=== PATIENT | female | born 1970 | race Hispanic/Latino ===

== ENCOUNTER 2018-03-04 05:24 | Emergency (ER) | payer OTHER ==
[~2018-03-04] VITALS: Ht 160 cm; Wt 83.5 kg
[~2018-03-04 05:24] MED LIST: METFORMIN HCL500 MG PO; NORVASC5 MG PO; POTASSIUM CHLO20 ME1 PO
--- OUTSIDE RECORDS SUMMARY | 2018-03-04 05:28 | XMS REPORT | Clinical Summary ---
Author Author [facility] Organization [facility] Address Unknown Phone Unavailable Care Team Providers Care Management Coordinator Name Role Phone Kristal Paulino MD PCP Allergies Comments Active Allergy Reactions Severity Noted Date Codeine Nausea And 07/31/2015 Vomiting Corticosteroids 07/31/2015 (Glucocorticoids) Fludrocortisone Acetate 09/27/2015 Glucosamine 07/31/2015 Iodides Swelling 07/31/2015 Iodine And Iodide Swelling 07/05/2015 Containing Products Shellfish Containing 09/27/2015 Products Medications End Date Status Medication Sig Dispensed Refills Start Date Active spironolactone Take 200 mg 3 (ALDACTONE) 100 MG tablet by mouth once 7 daily. Active MICROGESTIN 1.5/, 21, Take 1 tablet 0 1.5-30 mg-mcg tablet by mouth once 7 daily. Active carvedilol (COREG) 12.5 TAKE 1 TABLET 180 tablet 3 MG tablet BY MOUTH 7 TWICE A DAY Active TRULICITY 1.5 mg/0.5 mL INJECT 0.5 ML 5 pen injector (1 SYRINGE) 7 SUBCUTANEOUSL Y WEEKLY 06/04/2018 Active oxybutynin XL (DITROPAN Take 1 tablet 30 tablet 11 XL) 5 MG 24 hr (5 mg total) 8 tabletIndications: by mouth Overactive bladder daily. Active hydrocortisone 2.5 % APPLY 0 ointment TOPICALLY 2 8 TIMES DAILY. A THIN LAYER TO AFFECTED SKIN 05/28/2017 Discontinued naproxen (NAPROSYN) 500 Take 1 tablet 60 tablet 0 MG tabletIndications: (500 mg 7 Sciatica of left side total) by mouth 2 (two) times a day with meals. 10/01/2017 triamcinolone (KENALOG) Apply 30 g 0 0.025 % topically 2 7 ointmentIndications: (two) times a Psoriasis day. 03/19/2017 clindamycin (CLEOCIN) 300 Take 1 42 capsule 0 MG capsuleIndications: capsule (300 7 Breast abscess mg total) by mouth 3 (three) times a day for 14 days. 04/28/2017 oseltamivir (TAMIFLU) 75 Take 1 10 capsule 0 MG capsuleIndications: capsule (75 8 Influenza mg total) by mouth 2 (two) times a day for 5 days. 04/27/2017 azithromycin (ZITHROMAX Take 2 6 tablet 0 Z-DAIANA) 250 MG tablets the 8 tabletIndications: first day, Influenza, Acute then 1 tablet non-recurrent daily for 4 pansinusitis days. 05/23/2017 benzonatate (TESSALON Take 1 30 capsule 0 PERLES) 100 MG capsule (100 8 capsuleIndications: Cough mg total) by mouth 3 (three) times a day as needed for cough for up to 30 days. 06/04/2017 nitrofurantoin, Take 1 14 capsule 0 macrocrystal-monohydrate, capsule (100 8 (MACROBID) 100 MG mg total) by capsuleIndications: UTI mouth 2 (two) (urinary tract times a day infection), uncomplicated for 7 days. 06/15/2017 sulfamethoxazole-trimetho Take 1 tablet 14 tablet 0 prim (BACTRIM DS) 800-160 by mouth 2 8 mg per tablet (two) times a day for 7 days. 06/26/2017 ciprofloxacin (CIPRO) 500 Take 1 tablet 1 tablet 0 MG tablet (500 mg 8 total) by mouth daily for 1 day. Active Problems Problem Noted Date Chronic UTI 06/17/2017 Elevated hemoglobin 05/12/2016 Vitamin D deficiency 05/09/2016 PCOS (polycystic ovarian syndrome) 01/27/2016 Overview: Dr. Rivera Hyperaldosteronism 07/05/2015 Overview: Overview: Managed by endocrine - dr. 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/2015 Overview: Overview: Component of hyperaldosteronism - on coreg Type 2 diabetes mellitus without complication 07/05/2015 Overview: Overview: trulicty per endocrine Resolved Problems Problem Noted Date Resolved Date Abscess of breast 03/11/2017 05/28/2017 Encounters Care Team Description Date Type Specialty Mari Lopez RN 01/05/2018 Telephone Family Medicine Kristal Paulino MD RLQ abdominal pain 08/19/2017 Lab Lab Kristal Paulino MD RLQ abdominal pain (Primary Dx) 08/19/2017 Office Visit Internal Medicine Eloisa Cardenas MD 08/03/2017 Telephone Urology Eloisa Cardenas MD 07/23/2017 Telephone Urology Eloisa Cardenas MD 07/02/2017 Telephone Urology Eloisa Cardenas MD 06/30/2017 Telephone Urology Eloisa Cardenas MD Gross hematuria (Primary Dx) 06/25/2017 Procedure visit Urology Kristal Paulino MD Anxiety about health (Primary Dx); Hypertension due to endocrine disorder; Type 2 diabetes mellitus without complication, without long-term current use of insulin; Hyperaldosteronism; Chronic UTI 06/16/2017 Office Visit Internal Medicine Eloisa Cardenas MD Gross hematuria 06/16/2017 Hospital Radiology Encounter Eloisa Cardenas MD Gross hematuria 06/16/2017 Hospital Radiology Encounter Eloisa Cardenas MD Canceled (Patient) 06/12/2017 Hospital Radiology Encounter Coco Sanchez MA 06/12/2017 Telephone Urology Eloisa Cardenas MD Gross hematuria 06/11/2017 Hospital Radiology Encounter Eloisa Cardenas MD Gross hematuria 06/11/2017 Hospital Radiology Encounter Eloisa Cardenas MD 06/09/2017 Telephone Urology Coco Sanchez MA 06/08/2017 Orders Only Urology Eloisa Cardenas MD CONNIE (stress urinary incontinence, female) (Primary Dx); Gross hematuria; Overactive bladder; Bilateral low back pain without sciatica, unspecified chronicity; Pelvic pain in female 06/04/2017 Office Visit Urology Kristal Paulino MD Gross hematuria (Primary Dx) 05/31/2017 Orders Only Internal Medicine Kristal Paulino MD 05/30/2017 Orders Only Internal Medicine Kristal Paulino MD UTI (urinary tract infection), uncomplicated (Primary Dx); Type 2 diabetes mellitus without complication, without long-term current use of insulin; PCOS (polycystic ovarian syndrome); Hypertension due to endocrine disorder; Hyperaldosteronism 05/28/2017 Office Visit Internal Medicine Kristal Paulino MD 05/21/2017 Telephone Family Medicine Kristal Paulino MD 05/20/2017 Telephone Family Medicine Kristal Paulino MD 05/13/2017 Telephone Family Medicine Kristal Paulino MD 04/28/2017 Telephone Family Medicine Kristal Paulino MD Body aches (Primary Dx); Influenza; Acute non-recurrent pansinusitis; Cough 04/23/2017 Office Visit Internal Medicine Rowan Austin LVN 04/23/2017 Telephone Internal Medicine Gaby Whitten NP Abscess of breast (Primary Dx) 03/11/2017 Office Visit General Surgery Julio Muñoz Jr., MD progress note (Phone Call) 03/09/2017 Documentation General Surgery Julio Muñoz Jr., MD Breast abscess (Primary Dx) 03/06/2017 Lab Lab Prisca Vazquez MA Breast abscess (Primary Dx) 03/06/2017 Orders Only General Surgery Julio Muñoz Jr., MD Breast abscess of female (Primary Dx) 03/05/2017 Office Visit General Surgery Kristal Paulino MD Breast abscess (Primary Dx); Abscess of breast, right 03/05/2017 Office Visit Internal Medicine after 03/03/2017 Family History Medical History Relation Name Comments Hyperlipidemia Father Hypertension Father Kidney cancer Father Stroke Mother Relation Name Status Comments Father Mother Social History Date Tobacco Use Types Packs/Day Years Used Never Smoker Smokeless Tobacco: Never Used Alcohol Use Drinks/Week oz/Week Comments Yes Sex Assigned at Date Recorded Not on file Industry Job Start Date Occupation Not on file Not on file Not on file Travel End Travel History Travel Start No recent travel history available. Last Filed Vital Signs Time Taken Vital Sign Reading 08/19/2017 10:17 AM CDT Blood Pressure 124/85 08/19/2017 10:17 AM CDT Pulse 88 08/19/2017 10:17 AM CDT Temperature 36.6 C (97.9 F) 08/19/2017 10:17 AM CDT Respiratory Rate 16 08/19/2017 10:17 AM CDT Oxygen Saturation 95% - Inhaled Oxygen - Concentration 08/19/2017 10:17 AM CDT Weight 80.7 kg (178 lb) 08/19/2017 10:17 AM CDT Height 152.4 cm (5') 08/19/2017 10:17 AM CDT Body Mass Index 34.76 Plan of Treatment Care Team Description Date Type Specialty Kristal Paulino MD [address] [facility] [address] [place], [place] [id number] 03/09/2018 Office Visit Internal Medicine Health Maintenance Due Date Last Done Comments DIABETIC RETINAL EYE EXAM 1970 DIABETIC FOOT EXAM 1980 URINE MICROALBUMIN 1980 HEPATITIS B VACCINES (1 1989 of 3 - Risk 3-dose series) CERVICAL CANCER SCREENING 1991 INFLUENZA VACCINE 10/28/2017 IPV VACCINES Aged Out No longer eligible based on patient's age to complete this topic MENINGOCOCCAL VACCINE Aged Out No longer eligible based on patient's age to complete this topic Procedures Comments Procedure Name Priority Date/Time Associated Diagnosis CT ABDOMEN PELVIS WO STAT 08/19/2017 RLQ abdominal pain CONTRAST 1:51 PM CDT MAGNESIUM LEVEL Routine 08/19/2017 RLQ abdominal pain 11:10 AM CDT CBC WITH PLATELET AND Routine 08/19/2017 RLQ abdominal pain DIFFERENTIAL 11:10 AM CDT COMPREHENSIVE METABOLIC Routine 08/19/2017 RLQ abdominal pain PANEL 11:10 AM CDT POC URINALYSIS DIPSTICK Routine 06/25/2017 Gross hematuria 1:58 PM CDT MRI ABDOMEN WO CONTRAST Routine 06/16/2017 Gross hematuria 9:55 AM CDT MRI PELVIS WO CONTRAST Routine 06/16/2017 Gross hematuria 9:15 AM CDT ESTIMATED GFR Routine 06/12/2017 1:56 PM CDT POC CREATININE Routine 06/12/2017 1:56 PM CDT URINALYSIS, AUTOMATED Routine 06/04/2017 Gross hematuria WITH MICROSCOPY 11:25 AM [employer] URINE CULTURE Routine 06/04/2017 Gross hematuria 11:25 AM [employer] [id number] Routine 06/04/2017 Gross hematuria 11:18 AM [employer] CONNIE (stress urinary incontinence, female) Overactive bladder POC URINALYSIS DIPSTICK Routine 06/04/2017 Gross hematuria 10:18 AM [employer] URINALYSIS, COMPLETE, Routine 05/30/2017 WITH REFLEX TO CULTURE 12:49 AM [employer] URINE CULTURE Routine 05/30/2017 12:49 AM [employer] POC URINALYSIS DIPSTICK Routine 05/28/2017 UTI (urinary tract 10:05 AM [employer] infection), uncomplicated POCT INFLUENZA A/B Routine 04/23/2017 Body aches 10:01 AM [employer] GRAM STAIN Routine 03/06/2017 11:47 AM [employer] ANAEROBIC CULTURE Routine 03/06/2017 Breast abscess 11:47 AM [employer] AEROBIC CULTURE Routine 03/06/2017 Breast abscess 11:47 AM [employer] after 03/03/2017 Results * CT Abdomen Pelvis Wo Contrast (08/19/2017 1:51 PM CDT) Narrative Performed At EXAMINATION:CT ABDOMEN PELVIS WO CONTRAST [facility] CLINICAL HISTORY:R10.31 Right lower quadrant pain, ABDOMINAL PAIN TECHNIQUE: Multiple axial images of the abdomen and pelvis were obtained without intravenous administration of iodinated contrast. Sagittal and coronal computerized reformatted images were also obtained. The lack of intravenous contrast reduces the sensitivity of detecting solid organ disease.. All CT images were acquired using low-dose technique with automated exposure control. COMPARISON: None. FINDINGS: Abdomen: 1.The appendix appears normal. 2.Diffuse fatty infiltration of liver. 3.Cholecystectomy. 4.Bilateral nephrolithiasis. Largest stone in the right kidney measures 3 mm to 4 mm. Largest stone in the left kidney measures 4 mm at the inferior pole level. There are cysts involving the kidneys bilaterally. In addition, there is cortical scarring bilaterally more so involving left kidney than the right. No hydronephrosis. 5.Large and small bowel loops are of normal caliber. The abdominal aorta is of normal caliber. There is no retroperitoneal lymphadenopathy. Pelvis: 1.The bladder appears normal. 2.A pelvic mass or fluid collection is not identified. 3.No pelvic lymphadenopathy. 4.The osseous structures are intact. IMPRESSION: 1.Hepatic steatosis. 2.Bilateral nephrolithiasis. An obstructing renal or ureteral stone is not identified. 3.The appendix appears normal. [facility]-[id number] Procedure Note Interface, Radiology Results Incoming - 08/19/2017 2:04 PM CDT EXAMINATION: CT ABDOMEN PELVIS WO CONTRAST CLINICAL HISTORY: R10.31 Right lower quadrant pain, ABDOMINAL PAIN TECHNIQUE: Multiple axial images of the abdomen and pelvis were obtained without intravenous administration of iodinated contrast. Sagittal and coronal computerized reformatted images were also obtained. The lack of intravenous contrast reduces the sensitivity of detecting solid organ disease.. All CT images were acquired using low-dose technique with automated exposure control. COMPARISON: None. FINDINGS: Abdomen: 1. The appendix appears normal. 2. Diffuse fatty infiltration of liver. 3. Cholecystectomy. 4. Bilateral nephrolithiasis. Largest stone in the right kidney measures 3 mm to 4 mm. Largest stone in the left kidney measures 4 mm at the inferior pole level. There are cysts involving the kidneys bilaterally. In addition, there is cortical scarring bilaterally more so involving left kidney than the right. No hydronephrosis. 5. Large and small bowel loops are of normal caliber. The abdominal aorta is of normal caliber. There is no retroperitoneal lymphadenopathy. Pelvis: 1. The bladder appears normal. 2. A pelvic mass or fluid collection is not identified. 3. No pelvic lymphadenopathy. 4. The osseous structures are intact. IMPRESSION: 1. Hepatic steatosis. 2. Bilateral nephrolithiasis. An obstructing renal or ureteral stone is not identified. 3. The appendix appears normal. [facility]-[id number] Performing Organization Address City/State/Zipcode Phone Number [facility] [address] [place] [address] * CBC with platelet and differential (08/19/2017 11:10 AM CDT) WBC 8.3 3.8 - 10.8 Thousand/uL [employer] [place] RBC 5.62 (H) 3.80 - 5.10 Million/uL [employer] [place] HGB 17.0 (H) 11.7 - 15.5 g/dL [employer] [place] HCT 50.9 (H) 35.0 - 45.0 % [employer] [place] MCV 90.6 80.0 - 100.0 fL [employer] [place] MCH 30.2 27.0 - 33.0 pg [employer] [place] MCHC 33.4 32.0 - 36.0 g/dL [employer] [place] RDW 12.8 11.0 - 15.0 % [employer] [place] Platelet count 313 140 - 400 Thousand/uL [facility] [employer] [place] MPV 10.4 7.5 - 12.5 fL [employer] [place] Neutrophils, absolute 5,843 1,500 - 7,800 cells/uL [employer] [place] Lymphocytes, absolute 1,760 850 - 3,900 cells/uL [employer] [place] Monocytes, absolute 573 200 - 950 cells/uL [employer] [place] Eosinophils, absolute 58 15 - 500 cells/uL [employer] [place] Basophils, absolute 66 0 - 200 cells/uL [employer] [place] Neutrophils 70.4 % [employer] [place] Lymphocytes 21.2 % [employer] [place] Monocytes 6.9 % [employer] [place] Eosinophils 0.7 % [employer] [place] Basophils + RC 0.8 % [employer] [place] Specimen Blood Resulting Agency Comment Performing Organization Information: Site ID: [id number] Name: [facility] Address: [address] [place] [phone] Director: Genoveva Velasquez Performing Organization Address [facility] Phone Number [facility] [employer] [address] [address] * Magnesium level (08/19/2017 11:10 AM CDT) Magnesium 1.9 1.5 - 2.5 mg/dL [facility] [employer] [place] Specimen Blood Resulting Agency Comment Performing Organization Information: Site ID: [id number] Name: [facility] Address: [address] [place] [phone] Director: Genoveva Velasquez Performing Organization Address City/[facility] Phone Number [facility] [address] [address] * Comprehensive metabolic panel (08/19/2017 11:10 AM CDT) Glucose 114 (H) 65 - 99 mg/dL [employer] Comment: [place] Fasting reference interval For someone without known diabetes, a glucose value between 100 and 125 mg/dL is consistent with prediabetes and should be confirmed with a follow-up test. BUN, whole blood 14 7 - 25 mg/dL [facility] Creatinine 0.97 0.50 - 1.10 mg/dL [facility] [employer] [place] EGFR Non-Afr. Citizen Of [place] 70 > OR=60 mL/min/1.73m2 Hydrocapsule [facility] EGFR 81 > OR=60 mL/min/1.73m2 [facility] BUN/creatinine ratio NOT APPLICABLE 6 - 22 (calc) [facility] Sodium 139 135 - 146 mmol/L [facility] Potassium 4.2 3.5 - 5.3 mmol/L [facility] Chloride 102 98 - 110 mmol/L [facility] CO2 30 20 - 31 mmol/L [facility] Calcium 9.4 8.6 - 10.2 mg/dL [facility] Protein 7.5 6.1 - 8.1 g/dL Hydrocaps[facility] Albumin, S 4.2 3.6 - 5.1 g/dL [facility] Globulin, total 3.3 1.9 - 3.7 g/dL (calc) [facility] Albumin/globulin ratio 1.3 1.0 - 2.5 (calc) [facility] Total bilirubin 0.7 0.2 - 1.2 mg/dL [facility] Alkaline phosphatase 53 33 - 115 U/L [facility] AST 25 10 - 35 U/L [facility] ALT 38 (H) 6 - 29 U/L [facility] [employer] [place] Specimen Blood Resulting Agency Comment Performing Organization Information: Site ID: [id number] Name: [employer] [facility] Lab Address: [address] [place] [phone] Director: Genoveva Velasquez Performing Organization Address City/State/Zipcode Phone Number [address] [address] * POC urinalysis dipstick (06/25/2017 1:58 PM CDT) Only the most recent of 3 results within the time period is included. Color urine, POC Yellow Clarity urine, POC Clear Glucose urine, POC Negative Negative Bilirubin urine, POC Negative Negative Ketones urine, POC Negative Negative Specific gravity urine, 1.025 1.005 - 1.030 POC Blood urine, POC Trace (A) Negative pH urine, POC 6.0 5.0, 5.5, 6.0, 6.5, 7.0, 7.5, 8.0, 8.5 Protein urine, POC Negative Negative Urobilinogen urine, POC <2.0 <2.0 Nitrite urine, POC Negative Negative Leukocyte esterase urine, Small (A) Negative POC Specimen Urine * MRI Abdomen Wo Contrast (06/16/2017 9:55 AM CDT) Narrative Performed At [facility] EXAMINATION:MRI ABDOMEN WO CONTRAST CLINICAL HISTORY:R31.0 Gross hematuria, hematuria TECHNIQUE: Multiplanar multisequence MR images of the abdomen were obtained without contrast. The lack of intravenous contrast reduces the sensitivity of detecting solid organ disease. COMPARISON:None available FINDINGS: ABDOMEN: 1. Liver: Severe fatty infiltration of the liver. No discrete liver lesion can be visualized within the limitations of a noncontrast examination. 2. Gallbladder: The gallbladder is absent. 3. Biliary Tree: No intrahepatic ductal dilatation. The extrahepatic common duct is within normal limits. 3. Spleen: The spleen is not enlarged. 4. Pancreas: The pancreas is unremarkable. 5. Adrenal Glands: The adrenal glands are unremarkable. 6. Kidneys: There is moderate scarring of the left kidney with numerous cysts in the kidneys bilaterally. The largest cyst in the left kidney in the anterior interpolar region on series 901, image 22 measures 24 x 21 mm. No definite solid mass is seen in the left kidney. The right kidney demonstrates multiple cysts, with the largest measuring up to 9 mm in the upper pole. The proximal ureters are unremarkable. 7. Abdominal Aorta: The abdominal aorta is nonaneurysmal. 8. Nodes: No enlarged retroperitoneal or mesenteric lymphadenopathy. 9. Ascites: No ascites or fluid collections. 10: Marrow: No suspicious marrow signal abnormalities. IMPRESSION: Numerous cystic lesions throughout the kidneys bilaterally with scarring of the left kidney. No visible solid mass within the limitations of a noncontrast examination. Noncontrast evaluation of the proximal ureters is unremarkable. The mid ureters are collapsed limiting evaluation. If the patient is allergic to gadolinium contrast, consider CT urogram. Additional findings as above. [facility]-[id number] Procedure Note Interface, Radiology Results - 06/16/2017 10:36 AM CDT EXAMINATION: MRI ABDOMEN WO CONTRAST CLINICAL HISTORY: R31.0 Gross hematuria, hematuria TECHNIQUE: Multiplanar multisequence MR images of the abdomen were obtained without contrast. The lack of intravenous contrast reduces the sensitivity of detecting solid organ disease. COMPARISON: None available FINDINGS: ABDOMEN: 1. Liver: Severe fatty infiltration of the liver. No discrete liver lesion can be visualized within the limitations of a noncontrast examination. 2. Gallbladder: The gallbladder is absent. 3. Biliary Tree: No intrahepatic ductal dilatation. The extrahepatic common duct is within normal limits. 3. Spleen: The spleen is not enlarged. 4. Pancreas: The pancreas is unremarkable. 5. Adrenal Glands: The adrenal glands are unremarkable. 6. Kidneys: There is moderate scarring of the left kidney with numerous cysts in the kidneys bilaterally. The largest cyst in the left kidney in the anterior interpolar region on series 901, image 22 measures 24 x 21 mm. No definite solid mass is seen in the left kidney. The right kidney demonstrates multiple cysts, with the largest measuring up to 9 mm in the upper pole. The proximal ureters are unremarkable. 7. Abdominal Aorta: The abdominal aorta is nonaneurysmal. 8. Nodes: No enlarged retroperitoneal or mesenteric lymphadenopathy. 9. Ascites: No ascites or fluid collections. 10: Marrow: No suspicious marrow signal abnormalities. IMPRESSION: Numerous cystic lesions throughout the kidneys bilaterally with scarring of the left kidney. No visible solid mass within the limitations of a noncontrast examination. Noncontrast evaluation of the proximal ureters is unremarkable. The mid ureters are collapsed limiting evaluation. If the patient is allergic to gadolinium contrast, consider CT urogram. Additional findings as above. [facility]-[id number] [facility] Organization Address City/State/Zipcode Phone Number [facility] [address] [place] [address] * MRI Pelvis Wo Contrast (06/16/2017 9:15 AM CDT) Narrative Performed At EXAMINATION:MRI PELVIS WO CONTRAST [facility] CLINICAL HISTORY:R31.0 Gross hematuria, hematurai TECHNIQUE: Multiplanar multisequence MR images of the pelvis were obtained without contrast. The lack of intravenous contrast reduces the sensitivity of the examination. COMPARISON:None available FINDINGS: 1.No focal abnormality is seen within the urinary bladder. 2.The ureters are not distended and no contrast was given. Therefore evaluation of the distal ureters is markedly limited. 3.Evaluation of the uterus demonstrates several nabothian cysts. The junctional zone measures up to 16 mm in thickness at the level of the uterine fundus as seen on series 601, image 9 consistent with a focal adenomyoma.. No discrete uterine mass is seen. The vagina is unremarkable. The urethra appears unremarkable. 4.The ovaries are not enlarged. There are circumscribed T1 and T2 hypointense masses in both ovaries. The mass in the right ovary measures up to 2.1 x 1.3 cm. The mass in the left ovary measures up to 2.3 x 1.9 cm. 5.There is no suspicious local regional adenopathy. The rectosigmoid colon is collapsed. No free fluid in the pelvis. 6.Diffuse red marrow throughout the imaged portion of the skeleton is likely secondary to gender and body habitus. IMPRESSION: Unremarkable appearance of the distended portion of the urinary bladder. The distal ureters are not visualized as they are collapsed and contrast was not given. Small masses in the ovaries bilaterally which are dark on all imaging sequences and most suggestive of fibromas. In the absence of prior imaging, 6 month follow-up to ensure stability is recommended. Focal adenomyoma of the uterine fundus as above. [facility]-[id number] Procedure Note [facility], Radiology Results Incoming - 06/16/2017 10:26 AM CDT EXAMINATION: MRI PELVIS WO CONTRAST CLINICAL HISTORY: R31.0 Gross hematuria, hematurai TECHNIQUE: Multiplanar multisequence MR images of the pelvis were obtained without contrast. The lack of intravenous contrast reduces the sensitivity of the examination. COMPARISON: None available FINDINGS: 1. No focal abnormality is seen within the urinary bladder. 2. The ureters are not distended and no contrast was given. Therefore evaluation of the distal ureters is markedly limited. 3. Evaluation of the uterus demonstrates several nabothian cysts. The junctional zone measures up to 16 mm in thickness at the level of the uterine fundus as seen on series 601, image 9 consistent with a focal adenomyoma.. No discrete uterine mass is seen. The vagina is unremarkable. The urethra appears unremarkable. 4. The ovaries are not enlarged. There are circumscribed T1 and T2 hypointense masses in both ovaries. The mass in the right ovary measures up to 2.1 x 1.3 cm. The mass in the left ovary measures up to 2.3 x 1.9 cm. 5. There is no suspicious local regional adenopathy. The rectosigmoid colon is collapsed. No free fluid in the pelvis. 6. Diffuse red marrow throughout the imaged portion of the skeleton is likely secondary to gender and body habitus. IMPRESSION: Unremarkable appearance of the distended portion of the urinary bladder. The distal ureters are not visualized as they are collapsed and contrast was not given. Small masses in the ovaries bilaterally which are dark on all imaging sequences and most suggestive of fibromas. In the absence of prior imaging, 6 month follow-up to ensure stability is recommended. Focal adenomyoma of the uterine fundus as above. [facility]-[id number] Performing Organization Address [facility]/Zipcode Phone Number [address] [address] * Estimated GFR (06/12/2017 1:56 PM CDT) GFR Non Af Amer 53 (A) mL/min/1.73 m2 [facility] DEPARTMENT OF PATHOLOGY AND GENOMIC MEDICINE GFR Af Amer 65 mL/min/1.73 m2 [facility] DEPARTMENT OF Comment: PATHOLOGY AND Chronic kidney disease: <60 [facility] mL/min/1.73m2 Kidney failure: <15 mL/min/1.73m2 The estimated GFR is calculated from the IDMS-traceable Modification of Diet in Renal Disease Equation. The accuracy of the calculation is poor when the creatinine is normal. Calculated values >90 mL/min/1.73m2 are not reported. This equation has not been validated in children (<18 years), women, the elderly (>70 years), or ethnic groups other than Caucasians and Americans. Specimen Blood Performing Organization Address [facility]ode Phone Number [facility] DEPARTMENT OF [address] [place], [place] [phone] PATHOLOGY AND [employer] MEDICINE * POC creatinine (06/12/2017 1:56 PM CDT) POC creatinine 1.1 (H)Comment: Testing 0.5 - 0.9 mg/dl [facility] DEPARTMENT OF performed on the ISTAT PATHOLOGY AND instrument by JULIET Choi. GENOMIC MEDICINE Specimen Blood Performing Organization Address [facility]/Zipcode Phone Number [facility] DEPARTMENT OF [address] [place] [phone] PATHOLOGY AND GENOMIC MEDICINE * Urinalysis, automated with microscopy (06/04/2017 11:25 AM RUST PROOFER) Color, UA YELLOW YELLOW [facility] [place] Appearance CLOUDY (A) CLEAR [employer] [place] Specific gravity, urine 1.015 1.001 - 1.035 [facility] [place] pH, urine 6.5 5.0 - 8.0 [facility] [place] Glucose, urine NEGATIVE NEGATIVE [facility] [place] Bilirubin, UA NEGATIVE NEGATIVE [facility] [place] Ketones, UA NEGATIVE NEGATIVE [facility] [place] Occult blood, urine 1+ (A) NEGATIVE [facility] [place] Protein, UA 1+ (A) NEGATIVE [facility] [place] Nitrite, UA NEGATIVE NEGATIVE [facility] [place] Leukocyte esterase, UA 2+ (A) NEGATIVE [facility] [place] WBC, UA > OR=60 (A) < OR=5 /HPF [facility] [place] RBC, UA 0-2 < OR=2 /HPF [facility] [place] Squamous epithelial 6-10 (A) < OR=5 /HPF [facility] [employer] cells, UA [place] Bacteria, UA MANY (A) NONE SEEN /HPF [employer] [place] Hyaline casts, UA 0-5 (A) NONE SEEN /LPF [employer] [place] Specimen Urine Resulting Agency Comment Performing Organization Information: Site ID: [id number] Name: [facility] Address: [address] [place] [phone] Director: Genoveva Velasquez MD Performing Organization Address City/State/[place]code [place] [address] * Urine culture (06/04/2017 11:25 AM RUST PROOFER) Only the most recent of 2 results within the time period is included. Urine culture SEE NOTE (A) Hydrocapsule [facility] Comment: [place] CULTURE, URINE, ROUTINE MICRO NUMBER:[id number] TEST STATUS: FINAL SPECIMEN SOURCE: URINE SPECIMEN QUALITY:ADEQUATE RESULT: Greater than 100,000 CFU/mL of Proteus mirabilis COMMENT: Additional organism(s) less than 10,000 CFU/mL isolated. These organisms, commonly found on external and internal genitalia, are considered colonizers. No further testing performed. P.mirabi lis -------- -------- INT JAE AMOX/CLAVULANATE S <=2 AMPICILLIN S <=2 AMP/SULBACTAM S <=2 CEFAZOLIN NR<=4 2 CEFEPIME S <=1 CEFTRIAXONE S <=1 CIPROFLOXACIN S <=0.25 GENTAMICIN S <=1 IMIPENEM R 4 LEVOFLOXACIN S <=0.12 NITROFURANTOIN R 128 PIP/TAZOBACTAM S <=4 TOBRAMYCIN S <=1 TRIMETHOPRIM/SULFA S <=20 S=SusceptibleI=Intermediat eR=Resistant*=Not Tested NR=Not ReportedNN=See Therapy Comments THERAPY COMMENTS Note 1: For infections other than uncomplicated UTI caused by E. coli, K. pneumoniae or P. mirabilis: Cefazolin is resistant if JAE > or=8 mcg/mL. (Distinguishing susceptible versus intermediate for isolates with JAE < or=4 mcg/mL requires additional testing.) Note 2: For uncomplicated UTI caused by E. coli, K. pneumoniae or P. mirabilis: Cefazolin is susceptible if JAE <32 mcg/mL and predicts susceptible to the oral agents cefaclor, cefdinir, cefpodoxime, cefprozil, cefuroxime, cephalexin and loracarbef. THERAPY COMMENTS This organism may show imipenem resistance by mechanisms other than a carbapenemase. Specimen Urine Resulting Agency Comment Performing Organization Information: Site ID: [id number] Name: [facility] Address: [address] [place] [phone] Director: Genoveva Velasquez MD Performing Organization Address [facility] Mex[facility]ode Phone Number [place] [phone] * POC BLADDER SCAN/PVR (06/04/2017 11:18 AM RUST PROOFER) Volume PVR 21ml Specimen Urine * URINALYSIS, COMPLETE, WITH REFLEX TO CULTURE (05/30/2017 12:49 AM RUST PROOFER) [facility] [employer] Comment: [place] * Test not performed. * * No suitable specimen received. * Narrative Performed At FASTING: UNKNOWN [facility] Resulting Agency Comment Performing Organization Information: Site ID: [id number] Name: [facility] Address: [address] [place] [phone] Director: Genoveva Velasquez MD Performing Organization Address City/State/Zipcode Phone Number [place] [address] [address] * POC Influenza A/B (04/23/2017 10:01 AM RUST PROOFER) Rapid Influenza A Ag NEG Rapid Influenza B Ag NEG Specimen Swab * Aerobic culture (03/06/2017 11:47 AM RUST PROOFER) Aerobic culture isolate Peptoniphilus harei [facility] DEPARTMENT OF Recovered in Broth only: PATHOLOGY AND (A) GENOMIC MEDICINE Comment: Specimen Information Specimen Source: Abscess Specimen Site: Breast Aerobic culture isolate Diphtheroids [facility] DEPARTMENT OF Few PATHOLOGY AND (A) GENOMIC MEDICINE Specimen Abscess - Breast Performing Organization Address [facility]ode Phone Number [facility] DEPARTMENT OF [address] [place] [phone] PATHOLOGY AND GENOMIC MEDICINE * Gram stain (03/06/2017 11:47 AM RUST PROOFER) Gram stain isolate No WBC's [facility] DEPARTMENT OF Occasional Gram negative rods PATHOLOGY AND Moderate Gram positive cocci GENOMIC MEDICINE in clusters Comment: Specimen Information Specimen Source: Abscess Specimen Site: Breast Specimen Abscess - Breast Performing Organization Address [facility] Phone Number [facility] DEPARTMENT OF [address] [place] [phone] PATHOLOGY AND GENOMIC MEDICINE * Anaerobic culture (03/06/2017 11:47 AM RUST PROOFER) Anaerobic culture isolate Anaerobic gram negative harrison [facility] DEPARTMENT OF Organism failed to thrive for PATHOLOGY AND identification. GENOMIC MEDICINE (A) Comment: Specimen Information Specimen Source: Abscess Specimen Site: Breast Specimen Abscess - Breast Performing Organization Address City/[facility]ode Phone Number [facility] DEPARTMENT OF [address] [place] [phone] PATHOLOGY AND GENOMIC MEDICINE after 03/03/2017 Insurance Payer Benefit Subscriber ID Type Phone Address Plan / Group CIGNA CIGNA OPEN xxxxxxxxxxx O ACCESS/NET WORK Advance Directives Patient has advance care planning documents on file. For more information, [place] [place] contact: Ja Granado [address] [place] [phone]
--- OUTSIDE RECORDS SUMMARY | 2018-03-04 05:28 | XMS REPORT | Clinical Summary ---
Author Author [facility] Address Unknown Phone Unavailable Care Team Providers Care Plastic Press Operator Name Role Phone Willy Rodriguez MD PCP Allergies Comments Active Allergy Reactions Severity Noted Date Codeine Nausea Only 07/05/2015 Fludrocortisone Acetate 09/27/2015 Iodine And Iodide Swelling 07/05/2015 Containing Products Shellfish Containing 09/27/2015 Products Steroids 07/05/2015 Medications End Date Status Medication Sig Dispensed Refills Start Date Active carvedilol (COREG) 12.5 TAKE 1 TABLET 60 tablet 0 MG tablet BY MOUTH 6 TWICE A DAY Active spironolactone Take 1 tablet 0 (ALDACTONE) 100 MG tablet by mouth 2 (two) times daily. Active blood sugar diagnostic 1 strip by 200 strip 0 StrpIndications: Diabetes Miscellaneous 6 mellitus due to route 2 (two) underlying condition with times daily. complications (HCC) Active lancets (FREESTYLE) 28 Use as 200 each 0 gauge MiscIndications: directed. 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 Active ergocalciferol (VITAMIN Take 1 8 capsule 0 D) 50,000 unit capsule 7 capsuleIndications: (50,000 Units Vitamin D deficiency total) by mouth once a week For 8weeks. 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 Yeager - on spironolactone Type 2 diabetes mellitus without complication 07/05/2015 Overview: trulicty per endocrine Hypertension due to endocrine disorder 07/05/2015 Overview: Component of hyperaldosteronism - on coreg Family History Medical History Relation Name Comments Cancer Father kidney cancer Hyperlipidemia Father Hypertension Father Stroke Mother early 40's Relation Name Status Comments Father Alive Mother Alive Social History Date Tobacco Use Types Packs/Day Years Used Never Smoker Smokeless Tobacco: Never Used Tobacco Cessation: Counseling Given: No Alcohol Use Drinks/Week oz/Week Comments Yes 1 Standard 0.5 socially drinks or equivalent Sex Assigned at Date Recorded Not on file Industry Job Start Date Occupation Not on file Not on file Not on file Travel End Travel History Travel Start No recent travel history available. Last Filed Vital Signs Not on file Plan of Treatment Health Maintenance Due Date Last Done Comments INFLUENZA VACCINE 12/28/2017 Results Not on fileafter 03/03/2017 Insurance Payer Benefit Subscriber ID Type Phone Address Plan / Group CIGNA - MGD CARE CIGNA xxxxxxxxxxx HMO/POS HMO/POS/OP EN ACCESS
[2018-03-04] MEDS ORDERED: KETOROLAC TROMETHAMINE 60 MG/2 ML VIAL ONE (05:42)
[2018-03-04] MEDS ORDERED: ORPHENADRINE CITRATE 30 MG/ML VIAL ONE (05:42)
[2018-03-04] MEDS ORDERED: ORPHENADRINE CITRATE 30 MG/ML VIAL IM ONE (05:45)
[2018-03-04] MEDS ORDERED: KETOROLAC TROMETHAMINE 60 MG/2 ML VIAL IM ONE (05:45)
--- NOTE | 2018-03-04 06:44 | Diagnostic Imaging Report ---
EXAMINATION: Head CT HISTORY: Right upper extremity numbness. COMPARISON: None. TECHNIQUE: Multidetector axial images were obtained without contrast from the foramen magnum to the vertex . The images were reconstructed using brain and bone algorithms. Thin section brain images were reformatted into coronal and sagittal planes. Image quality: Motion/streaking artifact limits the evaluation of the skull base and posterior cranial fossa. Dose modulation, iterative reconstruction, and/or weight based adjustment of the mA/kV was utilized to reduce the radiation dose to as low as reasonably achievable. FINDINGS: Parenchyma: 1. No abnormal densities. 2. No mass or hemorrhage. No CT evidence of acute territorial vascular insult. Extra-axial spaces:No abnormal density. No extra-axial fluid collections Brain volume: Normal for age. Ventricles: No hydrocephalus or displacement. Arteries: No density suggestive of thrombus. Dural sinuses: No abnormal density. Extra-axial spaces: No abnormal density. Foramen magnum: No mass, Chiari malformation, or basilar invagination. Sella: No obvious mass. Paranasal/mastoid sinuses: Imaged portions unremarkable. Skull/Scalp: No lytic or blastic lesions. No fractures. IMPRESSION: Normal head CT, particularly no intracranial hemorrhage or cortical infarct.. Signed by: Dr. Leah Gonzalez M.D. on 03/04/2018 6:41 AM
--- NOTE | 2018-03-04 06:48 | Diagnostic Imaging Report ---
EXAMINATION: CT of the cervical spine HISTORY: Right upper extremity numbness COMPARISON: None available TECHNIQUE: Multidetector helical axial images were obtained without contrast from the foramen magnum to T1. The images were reconstructed using bone and soft tissue algorithms and were viewed in axial, sagittal and coronal planes. Dose modulation, iterative reconstruction, and/or weight based adjustment of the mA/kV was utilized to reduce the radiation dose to as low as reasonably achievable. FINDINGS: Alignment: Mild straightening of the cervical lordosis which may be related to muscle spasm or positional. Soft tissues: Approximately 2 cm hypoattenuating nodule in the left lobe of the thyroid gland. Vertebrae: Normal height and density. No acute fracture, infection or neoplasm Degenerative changes: No significant degenerative changes, no spinal canal or foraminal stenosis. IMPRESSION: No significant degenerative changes, no spinal canal or foraminal stenoses. Signed by: Dr. Leah Gonzalez M.D. on 03/04/2018 6:45 AM
== END 2018-03-04 06:59 | disposition home or self-care (01) ==
LOC: ER 05:24
DX: R53.1 Weakness (principal); R20.0 Anesthesia of skin; M54.12 Radiculopathy, cervical region; I10 Essential (primary) hypertension; E11.9 Type 2 diabetes mellitus without complications
CPT/HCPCS: 70450; 72125; 96372; 99283; J1885; J2360

== ENCOUNTER 2018-03-10 19:57 | Inpatient (IN) | payer OTHER ==
[~2018-03-10] VITALS: Ht 160 cm; Wt 87.5 kg
--- OUTSIDE RECORDS SUMMARY | 2018-03-10 20:00 | XMS REPORT ---
Author [facility] Address Unknown Phone Unavailable Care Team Providers Care University Administrator Name Role Phone Kaleb IGLESIAS Unavailable Unavailable Problems This patient has no known problems. Allergies, Adverse Reactions, Alerts This patient has no known allergies or adverse reactions. Medications This patient has no known medications. Results Test Description Test Time Test Comments Text Results Atomic Results Result Comments CT CERVICAL SPINE WO 2018-03-04 06:41:00 [place] [address] Patient Name: TL BUSTOS MR #: [id number] : 1970 Age/Sex: 47/F Req #: [id number] [facility] Physician: Ordered by: BRITTON IGLESIAS MD Report #: [id number] Location: ER Room/Bed: Procedure: [id number] CT/CT CERVICAL SPINE WO Exam Date: 03/04/18 Exam Time: 619 REPORT STATUS: Signed EXAMINATION: CT of the cervical spine HISTORY: Right upper extremity numbness COMPARISON: None available TECHNIQUE: Multidetector helical axial images were obtained without contrast from the foramen magnum to T1. The images were reconstructed using bone and soft tissue algorithms and were viewed in axial, sagittal and coronal planes. Dose modulation, iterative reconstruction, and/or weight based adjustment of the mA/kV was utilized to reduce the radiation dose to as low as reasonably achievable. FINDINGS: Alignment: Mild straightening of the cervical lordosis which may be related to muscle spasm or positional. Soft tissues: Approximately 2 cm hypoattenuating nodule in the left lobe of the thyroid gland. Vertebrae: Normal height and density. No acute fracture, infection or neoplasm Degenerative changes: No significant degenerative changes, no spinal canal or foraminal stenosis. IMPRESSION: No significant degenerative changes, no spinal canal or foraminal stenoses. Signed by: Dr. Manuel Sheth M.D. on 03/04/2018 6:45 AM Dictated By: MANUEL SHETH MD 4 Transcribed By: DEB on 03/04/18644 COPY TO: BRITTON IGLESIAS MD CT BRAIN WO 2018-03-04 06:38:00 [place] [address] Patient Name: TL BUSTOS MR #: [id number] : 1970 Age/Sex: 47/F Req #: [id number] Adm Physician: Ordered by: BRITTON IGLESIAS MD Report #: [id number] Location: ER Room/Bed: Procedure: [id number] CT/CT BRAIN WO Exam Date: 03/04/18 Exam Time: 619 REPORT STATUS: Signed EXAMINATION: Head CT HISTORY: Right upper extremity numbness. COMPARISON: None. TECHNIQUE: Multidetector axial images were obtained without contrast from the foramen magnum to the vertex . The images were reconstructed using brain and bone algorithms. Thin section brain images were reformatted into coronal and sagittal planes. Image quality: Motion/streaking artifact limits the evaluation of the skull base and posterior cranial fossa. Dose modulation, iterative reconstruction, and/or weight based adjustment of the mA/kV was utilized to reduce the radiation dose to as low as reasonably achievable. FINDINGS: Parenchyma: 1. No abnormal densities. 2. No mass or hemorrhage. No CT evidence of acute territorial vascular insult. Extra-axial spaces:No abnormal density. No extra-axial fluid collections Brain volume: Normal for age. Ventricles: No hydrocephalus or displacement. Arteries: No density suggestive of thrombus. Dural sinuses: No abnormal density. Extra-axial spaces: No abnormal density. Foramen magnum: No mass, Chiari malformation, or basilar invagination. Sella: No obvious mass. Paranasal/mastoid sinuses: Imaged portions unremarkable. Skull/Scalp: No lytic or blastic lesions. No fractures. IMPRESSION: Normal head CT, particularly no intracranial hemorrhage or cortical infarct.. Signed by: Dr. Manuel Sheth M.D. on 03/04/2018 6:41 AM Dictated By: MANUEL SHETH MD 0 Transcribed By: DEB on 03/04/18640 COPY TO: BRITTON IGLESIAS MD
--- OUTSIDE RECORDS SUMMARY | 2018-03-10 20:00 | XMS REPORT | Clinical Summary ---
Author Author [facility] Organization [facility] Address Unknown Phone Unavailable Care Team Providers Care Wood Molder Name Role Phone Kristal Paulino MD PCP [...] DAILY. A THIN LAYER TO AFFECTED SKIN 05/08/2018 Active meloxicam (MOBIC) 7.5 mg Take 1 tablet 60 tablet 0 tabletIndications: (7.5 mg 8 Cervical myelopathy with total) by cervical radiculopathy mouth daily for 60 days. 03/09/2019 Active gabapentin (NEURONTIN) Take 1 60 capsule 0 300 mg capsule (300 8 capsuleIndications: mg total) by Cervical myelopathy with mouth 2 (two) cervical radiculopathy times a day. 05/28/2017 Discontinued naproxen (NAPROSYN) 500 Take 1 [...] 500 Take 1 tablet 1 tablet 0 06/25/201 MG tablet (500 mg 8 total) by [...] Encounters Care Team Description Date Type Specialty Kristal Paulino MD Cervical myelopathy with cervical radiculopathy (Primary Dx) 03/09/2018 Office Visit Internal Medicine Mari Lopez RN 01/05/2018 Telephone Family Medicine [...] note (Phone Call) 03/09/2017 Documentation General Surgery after 03/09/2017 Family History Medical History Relation Name Comments [...] Vital Signs Time Taken Vital Sign Reading 03/09/2018 8:51 AM [facility] Blood Pressure 129/81 03/09/2018 8:51 AM [facility] Pulse 99 08/19/2017 10:17 AM CDT Temperature 36.6 C (97.9 F) 03/09/2018 8:51 AM [facility] Respiratory Rate 16 03/09/2018 8:51 AM [facility] Oxygen Saturation 95% - Inhaled Oxygen - Concentration 03/09/2018 8:51 AM [facility] Weight 87.5 kg (193 lb) 03/09/2018 8:51 AM [facility] Height 152.4 cm (5') 03/09/2018 8:51 AM [facility] Body Mass Index 37.69 Plan of Treatment Care Team Description Date Type Specialty Kristal Paulino MD [address] [facility] [address] [place] [address] 03/16/2018 Appointment Radiology Kristal Paulino MD [address] [facility] [address] [place] [address] Nazario Gill, IMAN 04/01/2018 Appointment Physical Therapy Kristal Paulino MD [address] [facility] [address] [place], [place] [id number] Gregoria Franco MD [address] [facility] [address] [place] [address] 04/15/2018 Office Visit Neurology Health Maintenance Due Date Last Done Comments [...] 06/04/2017 Gross hematuria WITH MICROSCOPY 11:25 AM [facility] URINE CULTURE Routine 06/04/2017 Gross hematuria 11:25 AM [facility] [id number] Routine 06/04/2017 Gross hematuria 11:18 AM [facility] CONNIE (stress urinary incontinence, female) Overactive bladder POC URINALYSIS DIPSTICK Routine 06/04/2017 Gross hematuria 10:18 AM [facility] URINALYSIS, COMPLETE, Routine 05/30/2017 WITH REFLEX TO CULTURE 12:49 AM [facility] URINE CULTURE Routine 05/30/2017 12:49 AM [facility] POC URINALYSIS DIPSTICK Routine 05/28/2017 UTI (urinary tract 10:05 AM [facility] infection), uncomplicated POCT INFLUENZA A/B Routine 04/23/2017 Body aches 10:01 AM [facility] after 03/09/2017 Results * CT Abdomen Pelvis Wo Contrast [...] is not identified. 3.The appendix appears normal. [facility]-[id number] Procedure Note [facility], Radiology Results Incoming - 08/19/2017 2:04 PM [...] not identified. 3. The appendix appears normal. [id number] Performing Organization Address City/State/Zipcode Phone Number [facility] [address] [place] [address] * CBC with platelet and differential (08/19/2017 11:10 AM CDT) WBC 8.3 3.8 - 10.8 Thousand/uL [facility] [employer] [place] RBC 5.62 (H) 3.80 - 5.10 Million/uL [employer] [place] HGB 17.0 (H) 11.7 - 15.5 g/dL [facility] HCT 50.9 (H) 35.0 - 45.0 % [employer] [place] MCV 90.6 80.0 - 100.0 fL [facility] MCH 30.2 27.0 - 33.0 pg [facility] MCHC 33.4 32.0 - 36.0 g/dL [employer] [place] RDW 12.8 11.0 - 15.0 % [employer] [place] Platelet count 313 140 - 400 Thousand/uL [facility] MPV 10.4 7.5 - 12.5 fL [facility] [employer] [place] Neutrophils, absolute 5,843 1,500 - 7,800 cells/uL [employer] [place] Lymphocytes, absolute 1,760 850 - 3,900 cells/uL [employer] [place] Monocytes, absolute 573 200 - 950 cells/uL [facility] Eosinophils, absolute 58 15 - 500 cells/uL [employer] [place] Basophils, absolute 66 0 - 200 cells/uL [employer] [place] Neutrophils 70.4 % [facility] Lymphocytes 21.2 % [employer] [place] Monocytes 6.9 % [facility] Eosinophils 0.7 % [facility] Basophils + RC 0.8 % [employer] [place] Specimen Blood Resulting Agency Comment Performing Organization Information: Site ID: [id number] Name: [facility] Address: [address] [place] [address] Director: Genoveva Velasquez Performing Organization Address City/State/Zipcode Phone Number [place] [phone] [place] [address] * Magnesium level (08/19/2017 11:10 AM CDT) Magnesium 1.9 1.5 - 2.5 mg/dL [facility] [employer] [place] Specimen Blood Resulting Agency Comment Performing Organization Information: Site ID: [id number] Name: [facility] Address: [address] [place] [phone] Director: Genoveva Velasquez Performing Organization Address [facility] [place]/[facility] Cent[facility] Phone Number [facility] [employer] [address] [address] * Comprehensive metabolic panel (08/19/2017 11:10 AM CDT) Glucose 114 (H) 65 - 99 mg/dL [employer] Comment: [place] Fasting reference interval For someone without known diabetes, a glucose value between 100 and 125 mg/dL is consistent with prediabetes and should be confirmed with a follow-up test. BUN, whole blood 14 7 - 25 mg/dL [employer] [place] Creatinine 0.97 0.50 - 1.10 mg/dL [employer] [place] EGFR Non-Afr. [place] 70 > OR=60 mL/min/1.73m2 [employer] [place] EGFR 81 > OR=60 mL/min/1.73m2 [employer] [place] BUN/creatinine ratio NOT APPLICABLE 6 - 22 (calc) [employer] [place] Sodium 139 135 - 146 mmol/L [employer] [place] Potassium 4.2 3.5 - 5.3 mmol/L [employer] [place] Chloride 102 98 - 110 mmol/L [employer] [place] CO2 30 20 - 31 mmol/L [employer] [place] Calcium 9.4 8.6 - 10.2 mg/dL [employer] [place] Protein 7.5 6.1 - 8.1 g/dL [employer] [place] Albumin, S 4.2 3.6 - 5.1 g/dL [employer] [place] Globulin, total 3.3 1.9 - 3.7 g/dL (calc) [employer] [place] Albumin/globulin ratio 1.3 1.0 - 2.5 (calc) [employer] [place] Total bilirubin 0.7 0.2 - 1.2 mg/dL [employer] [place] Alkaline phosphatase 53 33 - 115 U/L [employer] [place] AST 25 10 - 35 U/L [employer] [place] ALT 38 (H) 6 - 29 U/L [employer] [place] Specimen Blood Resulting Agency Comment Performing Organization Information: Site ID: [id number] Name: [facility] Address: [address] [place] [phone] Director: Genoveva Velasquez Performing Organization Address City/[facility]/Zipcode Phone Number [facility] [address] [address] * POC urinalysis dipstick (06/25/2017 1:58 PM [...] (06/16/2017 9:55 AM CDT) Narrative Performed At [facility] RADIANT EXAMINATION:MRI ABDOMEN WO CONTRAST CLINICAL HISTORY:R31.0 [...] consider CT urogram. Additional findings as above. [facility]-[id number] Procedure Note Interface, Radiology Results - 06/16/2017 [...] consider CT urogram. Additional findings as above. 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 [facility]-[id number] Performing Organization Address City/[facility]/Zipcode Phone Number [facility] [address] [place] [address] * Estimated GFR (06/12/2017 1:56 PM CDT) GFR Non Af Amer 53 (A) mL/min/1.[address] [facility] DEPARTMENT OF PATHOLOGY AND GENOMIC MEDICINE GFR Af Amer 65 mL/min/1.[address] [facility] DEPARTMENT OF Comment: PATHOLOGY AND Chronic kidney disease: <60 GENOMIC MEDICINE mL/min/1.73m2 Kidney failure: <15 mL/min/1.73m2 The [...] and Americans. Specimen Blood Performing Organization Address City/[facility]/Zipcode Phone Number [address] [address] PATHOLOGY AND GENOMIC MEDICINE * POC creatinine (06/12/2017 1:56 PM CDT) POC creatinine 1.1 (H)Comment: Testing 0.5 - 0.9 mg/dl [facility] DEPARTMENT OF performed on the ISTAT PATHOLOGY AND instrument by RN [id number]. GENOMIC MEDICINE Specimen Blood Performing Organization Address City/State/Zipcode Phone Number [facility] DEPARTMENT OF [address] [place] [address] PATHOLOGY AND GENOMIC MEDICINE * Urinalysis, automated with microscopy (06/04/2017 11:25 AM [facility]) Color, UA YELLOW YELLOW [facility] [place] Appearance CLOUDY (A) CLEAR [facility] [place] Specific gravity, urine 1.015 1.001 - 1.035 [facility] [place] pH, urine 6.5 5.0 - 8.0 [facility] [place] Glucose, urine NEGATIVE NEGATIVE [facility] [place] Bilirubin, UA NEGATIVE NEGATIVE [facility] [place] Ketones, UA NEGATIVE NEGATIVE [facility] [place] Occult blood, urine 1+ (A) NEGATIVE [facility] [place] Protein, UA 1+ (A) NEGATIVE [facility] [place] Nitrite, UA NEGATIVE NEGATIVE [facility] [place] Leukocyte esterase, UA 2+ (A) NEGATIVE [facility] [place] WBC, UA > OR=60 (A) < OR=5 /HPF [facility] [place] RBC, UA 0-2 < OR=2 /HPF [facility] [place] Squamous epithelial 6-10 (A) < OR=5 /HPF [facility] cells, UA [place] Bacteria, UA MANY (A) NONE SEEN /HPF [facility] [place] Hyaline casts, UA 0-5 (A) NONE SEEN /LPF [employer] [facility] [place] Specimen Urine Resulting Agency Comment Performing Organization Information: Site ID: [id number] Name: [facility] Address: [address] [place] [phone] Director: Genoveva Velasquez MD Performing Organization Address City/[facility]/Zipcode Phone Number [facility] [place] [address] * Urine culture (06/04/2017 11:25 AM [facility]) Only the most recent of 2 results within the time period is included. Urine culture SEE NOTE (A) [employer] Comment: [place] CULTURE, URINE, ROUTINE MICRO NUMBER:[id number] TEST STATUS: FINAL SPECIMEN SOURCE: URINE SPECIMEN [...] Performing Organization Information: Site ID: [id number] Name: [facility] Address: [address] [place] [phone] Director: Genoveva Velasquez MD Performing Organization Address City/State/Zipcode Phone Number [facility] [place] [address] * POC BLADDER SCAN/PVR (06/04/2017 11:18 AM [facility]) Volume PVR 21ml Specimen Urine * URINALYSIS, COMPLETE, WITH REFLEX TO CULTURE (05/30/2017 12:49 AM [facility]) [facility], TNP [employer] Comment: [place] * Test not performed. * * No suitable specimen received. * Narrative Performed At FASTING: UNKNOWN [facility] Resulting Agency Comment Performing Organization Information: Site ID: [id number] Name: [facility] Address: [address] [place] [phone] Director: Genoveva Velasquez MD Performing Organization Address City/State/Zipcode Phone Number [facility] [place] [phone] * POC Influenza A/B (04/23/2017 10:01 AM [facility]F) Rapid Influenza A Ag NEG Rapid Influenza B Ag NEG Specimen Swab after 03/09/2017 Insurance Payer Benefit Subscriber ID Type Phone Address Plan / Group [facility] xxxxxxxxx HMO/PPO THCARE CHOICE/CHO ICE + Advance Directives Patient has advance care planning documents on file. For more information, [facility] [place] contact: Ja Granado [address] [place] [address]
--- OUTSIDE RECORDS SUMMARY | 2018-03-10 20:00 | XMS REPORT | Clinical Summary ---
Author Author [facility] Address Unknown Phone Unavailable Care Team Providers Care Reinspector Name Role Phone Willy Rodriguez MD PCP [...] INFLUENZA VACCINE 12/28/2017 Results Not on fileafter 03/09/2017 Insurance Payer Benefit Subscriber ID Type Phone Address Plan / Group [employer] - [employer] CARE [employer] xxxxxxxxxxx HMO/POS HMO/POS/OP EN ACCESS
[2018-03-10] MEDS ORDERED: SPIRONOLACTONE100 MG PO (20:17)
[2018-03-10] MEDS ORDERED: CARVEDILOL12.5 MG PO (20:17)
[2018-03-10] MEDS ORDERED: MELOXICAM7.5 MG PO (20:17)
[2018-03-10 21:08] LABS: BASOPHILS # (AUTO) 0.1 (0.0-0.1); BASOPHILS % 0.4 % (0.0-1.0); EOSINOPHILS # (AUTO) 0.2 (0.0-0.4); EOSINOPHILS % 1.8 % (0.0-6.0); HEMATOCRIT 44.7 % (34.2-44.1); HEMOGLOBIN 15.5 g/dL (12.0-16.0); LYMPHOCYTES # (AUTO) 1.6 (1.0-3.2); LYMPHOCYTES % 12.7 % (18.0-39.1); MEAN CORPUSCULAR HEMOGLOBIN 30.5 pg (28-32); MEAN CORPUSCULAR HGB CONC 34.7 g/dL (31-35); MONOCYTES # (AUTO) 0.9 (0.2-0.8); NEUTROPHILS # (AUTO) 9.9 (2.1-6.9); NEUTROPHILS % 77.9 % (38.7-80.0); PLATELET COUNT 299 x10e3/uL (140-360); RED BLOOD COUNT 5.08 x10e6/uL (3.6-5.1); RED CELL DISTRIBUTION WIDTH 12.9 % (11.7-14.4)
[2018-03-10 21:18] LABS: CLARITY,URINE SL CLOUDY (CLEAR); COLOR,URINE ORANGE (YELLOW)
[2018-03-10 21:19] LABS: BILIRUBIN,URINE NEGATIVE (NEGATIVE); KETONES,URINE NEGATIVE (NEGATIVE); LEUKOCYTE ESTERASE ,URINE 2+ (NEGATIVE); NITRITE,URINE NEGATIVE (NEGATIVE); PROTEIN,URINE DIPSTICK TRACE (NEGATIVE); URINE UROBILINOGEN 0.2 mg/dL (0.2 - 1)
[2018-03-10 21:20] LABS: PREGNANCY TEST, URINE NEGATIVE (NEGATIVE)
[2018-03-10 21:29] LABS: ALBUMIN 3.4 g/dL (3.5-5.0); ALBUMIN/GLOBULIN RATIO 0.7 (0.8-2.0); ANION GAP 16.3 mmol/L (8-16); CALCIUM 9.4 mg/dL (8.4-10.2); CREATININE, SERUM 1.04 mg/dL (0.57-1.11); POTASSIUM 3.3 mmol/L (3.5-5.1)
[2018-03-10 21:32] LABS: RBC,URINE >50 /HPF (0-5); WBC,URINE (MAN) 21-50 /HPF (0-5)
[2018-03-10 21:33] LABS: TRANSITIONAL EPI CELLS,URINE RARE
[2018-03-10] MEDS ORDERED: CEFTRIAXONE SOD 1 GM VIAL IV STA (22:17)
[2018-03-10] MEDS ORDERED: KETOROLAC TROMETHAMINE 30 MG/ML VIAL IV STA (22:26)
[2018-03-10] MEDS ORDERED: SODIUM CHLORIDE 0.9% 1000ML 1,000 ML IV STA (22:26)
--- NOTE | 2018-03-10 22:34 | Diagnostic Imaging Report ---
EXAM: CT Abdomen and Pelvis WITHOUT contrast INDICATION: Right flank pain COMPARISON: None. TECHNIQUE: Abdomen and pelvis were scanned utilizing a multidetector helical scanner from the lung base to the pubic symphysis without administration of IV contrast. Absence of intravenous contrast decreases sensitivity for detection of focal lesions and vascular pathology. Coronal and sagittal reformations were obtained. Routine protocol was performed. IV CONTRAST: None ORAL CONTRAST: Water COMPLICATIONS: None RADIATION DOSE: Total DLP: 763.98 mGy*cm Estimated effective dose: (DLP x 0.015 x size factor) mSv CTDIvol has been reviewed. It is below the limits set by the Radiation Protocol Committee (RPC). Dose modulation, iterative reconstruction, and/or weight based adjustment of the mA/kV was utilized to reduce the radiation dose to as low as reasonably achievable. FINDINGS: LINES and TUBES: None. LOWER THORAX: Unremarkable HEPATOBILIARY: Hepatic steatosis and hepatomegaly. No focal hepatic lesions. No biliary ductal dilation. GALLBLADDER: Absent. SPLEEN: No splenomegaly. PANCREAS: No focal masses or ductal dilatation. ADRENALS: No adrenal nodules KIDNEYS/URETERS: Mild right hydronephrosis with three stones in the ureter, two adjacent stones in the UPJ (0.7 x 0.5 x 0.4 cm and 0.7 x 0.5 x 0.6 cm) and one stone in the distal ureter (0.5 x 0.3 x 0.4 cm). Numerous nonobstructing stones in both kidneys with the largest discrete stone measuring up to approximately 0.8 cm in the right kidney. Atrophic left kidney. No left hydronephrosis. Low attenuating 1.7 cm lesion in the left kidney measures 23 HU and contains a peripheral punctate calcification. Additional 2.8 cm lesion in the superior pole of the left kidney with peripheral calcification. GI TRACT: No abnormal distention, wall thickening, or evidence of bowel obstruction. Appendix is normal. PELVIC ORGANS/BLADDER: Unremarkable. LYMPH NODES: No lymphadenopathy. VESSELS: Unremarkable. PERITONEUM / RETROPERITONEUM: No free air or fluid. BONES: Unremarkable. SOFT TISSUES: Unremarkable. IMPRESSION: 1. Mild right hydronephrosis with two stones in the UPJ and one stone in the distal ureter. 2. Bilateral nephrolithiasis. 3. Two left renal lesions may represent complex cysts, one of which was noted in 2015 although no images available for comparison. Recommend non-emergent evaluation with renal ultrasound. 4. Hepatic steatosis and hepatomegaly. Signed by: DR. Agustin Sales MD on 03/10/2018 10:30 PM
[2018-03-11] VITALS (10 sets, daily range): BP systolic 88–147; BP diastolic 41–90
[2018-03-11] MEDS ORDERED: ONDANSETRON HCL INJ 2 MG/ML VIAL IV PRN
--- OUTSIDE RECORDS SUMMARY | 2018-03-11 00:10 | XMS REPORT | Clinical Summary ---
Author Author [facility] Organization [facility] Address Unknown Phone Unavailable Care Team Providers Care Hand Plug Shaper Name Role Phone Kristal Paulino MD PCP [...] Eloisa Cardenas MD 06/30/2017 Telephone Urology Eloisa Cardensa MD Gross hematuria (Primary Dx) 06/25/2017 Procedure [...] (Primary Dx) 03/11/2017 Office Visit General Surgery after 03/10/2017 Family History Medical History Relation Name Comments [...] Taken Vital Sign Reading 03/09/2018 8:51 AM CYCLE TOURING GUIDE Blood Pressure 129/81 03/09/2018 8:51 AM CYCLE TOURING GUIDE Pulse 99 08/19/2017 10:17 AM CDT Temperature 36.6 C (97.9 F) 03/09/2018 8:51 AM CYCLE TOURING GUIDE Respiratory Rate 16 03/09/2018 8:51 AM CYCLE TOURING GUIDE Oxygen Saturation 95% - Inhaled Oxygen - Concentration 03/09/2018 8:51 AM CYCLE TOURING GUIDE Weight 87.5 kg (193 lb) 03/09/2018 8:51 AM CYCLE TOURING GUIDE Height 152.4 cm (5') 03/09/2018 8:51 AM CYCLE TOURING GUIDE Body Mass Index 37.69 Plan of Treatment Care Team Description Date Type Specialty Kristal Paulino MD [address] [facility] [address] [place], [place] [id number] 03/16/2018 Appointment Radiology Kristal Paulino MD [address] [facility] [address] [place] [address] Nazario Gill, IMAN 04/01/2018 Appointment Physical Therapy Kristal Paulino MD [address] [facility] [address] [place] [address] Gregoria Franco MD [address] [facility] [address] [place], [place] [id number] 04/15/2018 Office Visit Neurology Health Maintenance Due [...] 06/04/2017 Gross hematuria WITH MICROSCOPY 11:25 AM CYCLE TOURING GUIDE URINE CULTURE Routine 06/04/2017 Gross hematuria 11:25 AM CYCLE TOURING GUIDE [id number] Routine 06/04/2017 Gross hematuria 11:18 AM CYCLE TOURING GUIDE CONNIE (stress urinary incontinence, female) Overactive bladder POC URINALYSIS DIPSTICK Routine 06/04/2017 Gross hematuria 10:18 AM CYCLE TOURING GUIDE URINALYSIS, COMPLETE, Routine 05/30/2017 WITH REFLEX TO CULTURE 12:49 AM CYCLE TOURING GUIDE URINE CULTURE Routine 05/30/2017 12:49 AM CYCLE TOURING GUIDE POC URINALYSIS DIPSTICK Routine 05/28/2017 UTI (urinary tract 10:05 AM CYCLE TOURING GUIDE infection), uncomplicated POCT INFLUENZA A/B Routine 04/23/2017 Body aches 10:01 AM CYCLE TOURING GUIDE after 03/10/2017 Results * CT Abdomen Pelvis Wo Contrast [...] is not identified. 3.The appendix appears normal. [id number] Procedure Note Interface, Radiology Results Incoming - [...] not identified. 3. The appendix appears normal. [id number] Performing Organization Address City/[facility]/Zipcode Phone Number JOSEPH [address] [place] [address] * CBC with platelet and differential (08/19/2017 11:10 AM CDT) WBC 8.3 3.8 - 10.8 Thousand/uL [facility] [employer] [place] RBC 5.62 (H) 3.80 - 5.10 Million/uL [facility] [place] HGB 17.0 (H) 11.7 - 15.5 g/dL [facility] HCT 50.9 (H) 35.0 - 45.0 % [facility] [place] MCV 90.6 80.0 - 100.0 fL [facility] [place] MCH 30.2 27.0 - 33.0 pg [facility] [place] MCHC 33.4 32.0 - 36.0 g/dL [facility] [place] RDW 12.8 11.0 - 15.0 % [facility] [place] Platelet count 313 140 - 400 Thousand/uL [facility] MPV 10.4 7.5 - 12.5 fL [facility] [employer] [place] Neutrophils, absolute 5,843 1,500 - 7,800 cells/uL [facility] [place] Lymphocytes, absolute 1,760 850 - 3,900 cells/uL [facility] [employer] [place] Monocytes, absolute 573 200 - 950 cells/uL [facility] [employer] [place] Eosinophils, absolute 58 15 - 500 cells/uL [facility] [place] Basophils, absolute 66 0 - 200 cells/uL [facility] [place] Neutrophils 70.4 % [facility] [place] Lymphocytes 21.2 % [facility] [place] Monocytes 6.9 % [facility] Eosinophils 0.7 % [facility] Basophils + RC 0.8 % [facility] [place] Specimen Blood Resulting Agency Comment Performing Organization Information: Site ID: [id number] Name: [facility] Address: [address] [place] [phone] Director: Genoveva Velasquez Performing Organization Address City/State/Zipcode Phone Number [address] [address] * Magnesium level (08/19/2017 11:10 AM CDT) Magnesium 1.9 1.5 - 2.5 mg/dL [facility] [employer] [place] Specimen Blood Resulting Agency Comment Performing Organization Information: Site ID: [id number] Name: [facility] Address: [address] [place] [phone] Director: Genoveva Velasquez Performing Organization Address [facility] Cent[facility]ode Phone Number [email or web address] [place] [address] [place] [address] * Comprehensive metabolic panel (08/19/2017 11:10 AM CDT) Glucose 114 (H) 65 - 99 mg/dL [facility] Comment: [place] Fasting reference interval For someone without known diabetes, a glucose value between 100 and 125 mg/dL is consistent with prediabetes and should be confirmed with a follow-up test. BUN, whole blood 14 7 - 25 mg/dL [facility] [place] Creatinine 0.97 0.50 - 1.10 mg/dL [facility] [place] EGFR Non-Afr. Albanian 70 > OR=60 mL/min/1.73m2 [facility] [place] EGFR 81 > OR=60 mL/min/1.73m2 [facility] [place] BUN/creatinine ratio NOT APPLICABLE 6 - 22 (calc) [facility] [place] Sodium 139 135 - 146 mmol/L [facility] [place] Potassium 4.2 3.5 - 5.3 mmol/L [facility] [place] Chloride 102 98 - 110 mmol/L [facility] [place] CO2 30 20 - 31 mmol/L [facility] [place] Calcium 9.4 8.6 - 10.2 mg/dL [facility] [place] Protein 7.5 6.1 - 8.1 g/dL [facility] [place] Albumin, S 4.2 3.6 - 5.1 g/dL [facility] [place] Globulin, total 3.3 1.9 - 3.7 g/dL (calc) [facility] [place] Albumin/globulin ratio 1.3 1.0 - 2.5 (calc) [facility] [place] Total bilirubin 0.7 0.2 - 1.2 mg/dL [facility] [place] Alkaline phosphatase 53 33 - 115 U/L [facility] [place] AST 25 10 - 35 U/L [facility] [place] ALT 38 (H) 6 - 29 U/L [facility] [place] Specimen Blood Resulting Agency Comment Performing Organization Information: Site ID: [id number] Name: [facility] Address: [address] [place] [address] Director: Genoveva Velasquez Performing Organization Address [facility] Centercode Phone Number [email or web address] [place] [address] [place] [address] * POC urinalysis dipstick (06/25/2017 1:58 [...] consider CT urogram. Additional findings as above. [id number] Procedure Note Interface, Radiology Results Incoming - 06/16/2017 10:36 AM CDT EXAMINATION: MRI [...] consider CT urogram. Additional findings as above. [id number] Performing Organization Address City/State/Zipcode Phone Number [facility] [address] [place] [address] * MRI Pelvis Wo Contrast (06/16/2017 9:15 AM CDT) Narrative Performed At EXAMINATION:MRI PELVIS WO CONTRAST [facility] CLINICAL HISTORY:R31.0 Gross hematuria, hematurai TECHNIQUE: [...] adenomyoma of the uterine fundus as above. [id number] Procedure Note [facility], Radiology Results Incoming - 06/16/2017 10:26 [...] adenomyoma of the uterine fundus as above. [facility]-[id number] Performing Organization Address City/[facility]/Zipcode Phone Number [facility] [address] [place] [address] * Estimated GFR (06/12/2017 1:56 PM CDT) GFR Non Af Amer 53 (A) mL/min/1.73 m2 [facility] DEPARTMENT OF PATHOLOGY AND GENOMIC MEDICINE GFR Af Amer 65 mL/min/1.73 m2 [facility] DEPARTMENT OF Comment: PATHOLOGY AND Chronic [...] and Americans. Specimen Blood Performing Organization Address City/[facility]/Zipcode Phone Number [place] [phone] [place] [address] PATHOLOGY AND GENOMIC MEDICINE * POC creatinine (06/12/2017 1:56 PM CDT) POC creatinine 1.1 (H)Comment: Testing 0.5 - 0.9 mg/dl [facility] DEPARTMENT OF performed on the ISTAT PATHOLOGY AND instrument by RN [id number]. GENOMIC MEDICINE Specimen Blood Performing Organization Address City/State/Zipcode Phone Number [facility] DEPARTMENT OF [address] [place] [address] PATHOLOGY AND GENOMIC MEDICINE * Urinalysis, automated with microscopy (06/04/2017 11:25 AM CYCLE TOURING GUIDE) Color, UA YELLOW YELLOW [facility] [place] Appearance CLOUDY (A) CLEAR [facility] [place] Specific gravity, urine 1.015 1.001 - 1.035 [facility] [place] pH, urine 6.5 5.0 - 8.0 [facility] [place] Glucose, urine NEGATIVE NEGATIVE [facility] [place] Bilirubin, UA NEGATIVE NEGATIVE [facility] [place] Ketones, UA NEGATIVE NEGATIVE [facility] [place] Occult blood, urine 1+ (A) NEGATIVE [facility] [place] Protein, UA 1+ (A) NEGATIVE [facility] [place] Nitrite, UA NEGATIVE NEGATIVE [facility] [place] Leukocyte esterase, UA 2+ (A) NEGATIVE [facility] [place] WBC, UA > OR=60 (A) < OR=5 /HPF [facility] [place] RBC, UA 0-2 < OR=2 /HPF [facility] [place] Squamous epithelial 6-10 (A) < OR=5 /HPF [facility] cells, UA [place] Bacteria, UA MANY (A) NONE SEEN /HPF [facility] [place] Hyaline casts, UA 0-5 (A) NONE SEEN /LPF [facility] [place] Specimen Urine Resulting Agency Comment Performing Organization Information: Site ID: [id number] Name: [facility] Address: [address] [place] [phone] Director: Genoveva Velasquez MD Performing Organization Address [facility]/Zipcode Phone [email or web address] [address] * Urine culture (06/04/2017 11:25 AM CYCLE TOURING GUIDE) Only the most recent of 2 results within the time period is included. Urine culture SEE NOTE (A) [facility] Comment: [place] CULTURE, URINE, ROUTINE MICRO NUMBER:[id number] TEST STATUS: FINAL SPECIMEN SOURCE: URINE SPECIMEN [...] Performing Organization Information: Site ID: [id number] Name: [facility] Address: [address] [place] [phone] Director: Genoveva Velasquez MD Performing Organization Address City/State/Zipcode Phone Number [email or web address] [place] [phone] * POC BLADDER SCAN/PVR (06/04/2017 11:18 AM CYCLE TOURING GUIDE) Volume PVR 21ml Specimen Urine * URINALYSIS, COMPLETE, WITH REFLEX TO CULTURE (05/30/2017 12:49 AM CYCLE TOURING GUIDE) [facility], [facility] Comment: [place] * Test not performed. * * No suitable specimen received. * Narrative Performed At FASTING: UNKNOWN [facility] Resulting Agency Comment Performing Organization Information: Site ID: [id number] Name: [facility] Address: [address] [place] [address] Director: Genoveva Velasquez MD Performing Organization Address City/State/Zipcode Phone Number [facility] [place] [address] [place] [address] * POC Influenza A/B (04/23/2017 10:01 AM CYCLE TOURING GUIDE) Rapid Influenza A Ag NEG Rapid Influenza B Ag NEG Specimen Swab after 03/10/2017 Insurance Payer Benefit Subscriber ID Type Phone Address Plan / Group [facility] xxxxxxxxx HMO/PPO THCARE CHOICE/CHO ICE + Advance Directives Patient has advance care planning documents on file. For more information, parmjit lebron contact: Ja Granado [address] [place] [address]
--- OUTSIDE RECORDS SUMMARY | 2018-03-11 00:10 | XMS REPORT | Clinical Summary ---
Author Author [facility] Address Unknown Phone Unavailable Care Team Providers Care [employer] Principal Name Role Phone Willy Rodriguez MD PCP [...] INFLUENZA VACCINE 12/28/2017 Results Not on fileafter 03/10/2017 Insurance Payer Benefit Subscriber ID Type Phone Address Plan / Group [employer] - MGD CARE CIGNA xxxxxxxxxxx HMO/POS HMO/POS/OP EN ACCESS
--- NOTE | 2018-03-11 02:20 | NUR ---
PATIENT RECEIVED. PATIENT IS RESTING IN BED, AAOX3. RESP EVEN AND UNLABORED. PATIENT C/O BEING TIRED AND NAUSEATED, WILL MEDICATE PER MAR. ORIENTED TO ROOM. COMPLETED ASSESSMENT. BILATERAL ELBOWS REDNESS NOTED. PATIENT STATED SHE HAD PSORIASIS. AT BED SIDE. CALL LIGHT WITHIN REACH. INSTRUCT TO CALL FOR ASSISTANCE. BED LOW/LOCKED. CONTINUE TO MONITOR CLOSELY
[2018-03-11 02:29] LABS: BILIRUBIN,URINE NEGATIVE (NEGATIVE); CLARITY,URINE CLOUDY (CLEAR); COLOR,URINE YELLOW (YELLOW); KETONES,URINE TRACE (NEGATIVE); LEUKOCYTE ESTERASE ,URINE 2+ (NEGATIVE); NITRITE,URINE NEGATIVE (NEGATIVE); PROTEIN,URINE DIPSTICK TRACE (NEGATIVE); URINE UROBILINOGEN 0.2 mg/dL (0.2 - 1)
[2018-03-11 02:30] LABS: BACTERIA,URINE MANY /HPF; EPITHELIAL CELLS,URINE FEW /LPF; WBC,URINE (MAN) >50 /HPF (0-5)
[2018-03-11 02:31] LABS: RBC,URINE 21-50 /HPF (0-5)
[2018-03-11] MEDS: SODIUM CHLORIDE 0.9% 1000ML 1,000 ML IV SCH ×3 (02:59→21:28)
[2018-03-11 07:03] LABS: BASOPHILS # (AUTO) 0.1 (0.0-0.1); BASOPHILS % 0.3 % (0.0-1.0); HEMATOCRIT 41.1 % (34.2-44.1); HEMOGLOBIN 14.1 g/dL (12.0-16.0); LYMPHOCYTES # (AUTO) 0.6 (1.0-3.2); LYMPHOCYTES % 3.8 % (18.0-39.1); MEAN CORPUSCULAR HEMOGLOBIN 30.5 pg (28-32); MEAN CORPUSCULAR HGB CONC 34.3 g/dL (31-35); MONOCYTES % 6.7 % (4.4-11.3); NEUTROPHILS # (AUTO) 13.6 (2.1-6.9); NEUTROPHILS % 88.9 % (38.7-80.0); PLATELET COUNT 232 x10e3/uL (140-360); RED BLOOD COUNT 4.62 x10e6/uL (3.6-5.1); RED CELL DISTRIBUTION WIDTH 13.1 % (11.7-14.4)
[2018-03-11 07:21] LABS: ALBUMIN 2.9 g/dL (3.5-5.0); ALBUMIN/GLOBULIN RATIO 0.7 (0.8-2.0); ANION GAP 15.5 mmol/L (8-16); CALCIUM 8.5 mg/dL (8.4-10.2); CREATININE, SERUM 1.47 mg/dL (0.57-1.11); POTASSIUM 3.5 mmol/L (3.5-5.1)
--- NOTE | 2018-03-11 07:44 | Consultation ---
DATE OF CONSULTATION: March 11, 2018 UROLOGY CONSULTATION REASON FOR CONSULTATION: Obstructive uropathy. HISTORY OF PRESENT ILLNESS: Claudine Spera is a 47-year-old woman with a history of urolithiasis. The patient has not followed up in quite some time. She had right-sided flank pain radiating to the right groin without any nausea or vomiting and without any fevers. She reported to the emergency room where she was found to have a urinary tract infection, obstructive uropathy, and urological consultation was sought. The patient reports both stress and urge type urinary incontinence. She denies any hematuria or dysuria at this present time. PAST MEDICAL AND SURGICAL HISTORY 1. Hypertension. 2. Diabetes mellitus. 3. Psoriasis. 4. Obesity. 5. 1, para 1 by normal spontaneous vaginal delivery. 6. Status post cholecystectomy. CURRENT MEDICATIONS: Refer to the MAR. ALLERGIES: PLEASE REFER TO THE MAR. SOCIAL HISTORY: The patient denies smoking, ethanol or drug use. 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 She has a supportive at the bedside. FAMILY HISTORY: Noncontributory to the active urological problems. REVIEW OF SYSTEMS: As consistent above with the history of present illness and past medical history. Otherwise, negative for all other systems. PHYSICAL EXAMINATION GENERAL: A healthy appearing 47-year-old woman lying in bed in no apparent distress. VITALS: She is currently afebrile. Vital signs currently stable. ABDOMEN: Soft and nondistended. Slightly tender in the right lower quadrant without costovertebral angle tenderness. Kidneys not palpable. No hepatosplenomegaly. No obvious evidence of hernia. For the remaining physical examination systems, please refer to the admission history and physical on the chart. LABORATORY STUDIES: CT scan of the abdomen and pelvis was done as a stone protocol. It revealed 3 stones in the right ureter, bilateral nephrolithiasis. The patient has an atrophic left kidney and left renal cysts were noted. These cysts are complex and will follow them up as an outpatient later. White blood cell count is elevated at 12,720. Today's white blood cell count is still pending. Hemoglobin is normal at 15.5. Platelets are 299,000. The patient's potassium is slightly low at 3.3. Lactic acid is normal at 10.3. Urinalysis negative for microhematuria, pyuria and bacteruria. ASSESSMENT 1. Right ureteral stones. 2. Bilateral nephrolithiasis. 3. Renal colic. 4. Urinary tract infection without symptomatology. 5. Mixed type urinary incontinence. 6. Microhematuria. 7. Obesity. 8. Atrophic left kidney. 9. Complex renal cysts. 10. Leukocytosis. 11. Hypokalemia. PLAN 1. I defer hematological and electrolyte abnormalities to the primary admitting physician. 2. IV antibiotics. 3. Await urine culture and sensitivity. 4. I plan on cystoscopy and stent placement most likely tomorrow following a course of antibiotics, and hopefully will have the culture result prior to manipulation. Thank you very much for involving us in the care of your patient. Will be happy to follow her along with you, as well as an outpatient. Job#: [id number] BENJAMIN
[2018-03-11] MEDS ORDERED: CEFTRIAXONE SOD 1 GM VIAL IV SCH (08:00)
[2018-03-11] MEDS: CEFTRIAXONE SOD 1 GM/NS 50 ML 50 ML IV SCH ×2 (08:54→21:28)
--- NOTE | 2018-03-11 11:08 | NUR ---
Dr. Milton paged for home meds and to notify MD of patient's temp. 101, awaiting for a call back
--- NOTE | 2018-03-11 11:37 | NUR ---
Spoke with Dr. Milton, per continue home meds and tylenol 650mg PO Q6 PRN for fever.
[2018-03-11] MEDS ORDERED: ACETAMINOPHEN 325 MG TAB PO PRN (11:45)
[2018-03-11] MEDS: CARVEDILOL 12.5 MG TAB PO SCH (12:13)
[2018-03-11] MEDS: SPIRONOLACTONE 25 MG TAB PO SCH (16:18)
[2018-03-11] MEDS ORDERED: NON-FORMULARY MEDICATION (Spironolactone 100 MG) PO SCH (17:00)
--- NOTE | 2018-03-11 18:55 | NUR ---
Report given to Carlos Navarro RN
--- NOTE | 2018-03-11 19:25 | NUR ---
PATIENT RECEIVED. PATIENT IS RESTING IN BED, AAOX3. RESP EVEN AND UNLABORED. NO ACUTE DISTRESS NOTED. AT BED SIDE. CALL LIGHT WITHIN REACH. INSTRUCT TO CALL FOR ASSISTANCE. BED LOW/LOCKED. CONTINUE TO MONITOR CLOSELY
[2018-03-12] VITALS (8 sets, daily range): BP systolic 109–135; BP diastolic 52–71
[2018-03-12] MEDS: SODIUM CHLORIDE 0.9% 1000ML 1,000 ML IV SCH (06:17)
--- NOTE | 2018-03-12 08:45 | NUR ---
patient to OR now with family at side.
[2018-03-12] MEDS: CEFTRIAXONE SOD 1 GM/NS 50 ML 50 ML IV SCH ×2 (09:00→22:46)
[2018-03-12] MEDS ORDERED: HOME MEDICATION--PATIENTS OWN PO SCH (09:00)
[2018-03-12] MEDS ORDERED: BELLADONNA/OPIUM 60 MG SUPP PR ONE (09:56)
[2018-03-12] MEDS ORDERED: IOPAMIDOL 610MG/1ML 300 MG/ML VIAL IV ONE (09:57)
--- NOTE | 2018-03-12 10:50 | Discharge Summary ---
HOSPITAL COURSE: Ms. Spear is a 47-year-old female with history of diabetes, hypertension, hyperlipidemia, came to the emergency room complaining of right flank pain and right lower quadrant pain. She denies any other complaints. CAT scan showed that she had bilateral nephrolithiasis with right hydronephrosis so patient is going to go for a cystoscopy and stent placement today. PHYSICAL EXAM GENERAL: She is awake and alert. VITAL SIGNS: Temperature is 98.7, blood pressure 112/52. HEART: Regular rate. LUNGS: Clear to auscultation. ABDOMEN: Soft. BLOOD WORK: Potassium 3.5, creatinine is 1.47, glucose 172. White count 15.3, hemoglobin 14.1, hematocrit 41.1. ASSESSMENTS 1. Leukocytosis urinary tract infection. Urine culture is pending. 2. Bilateral nephrolithiasis. 3. Mild right hydronephrosis. 4. Diabetes with chronic kidney disease. 5. Chronic kidney disease stage 3. 6. Hypertension. PLAN AT THE PRESENT TIME: Patient is going to go for a cystoscopy and stent. If it is okay with urologist, she will go home, continue her home medications and antibiotics and pain medications as per Dr. Joe. Please see home medication reconciliation list. All this was discussed with patient and questions were answered to satisfaction. If patient gets discharged today, she needs followup with her PCP next week. Job#: [id number] ALVA
[2018-03-12] MEDS: SPIRONOLACTONE 25 MG TAB PO SCH ×2 (12:14→17:02)
[2018-03-12] MEDS: CARVEDILOL 12.5 MG TAB PO SCH (12:15)
[2018-03-12] MEDS: PHENAZOPYRIDINE HCL 100 MG TAB PO SCH ×2 (12:15→17:02)
[2018-03-12] MEDS: MELOXICAM 7.5 MG TAB PO SCH (12:15)
[2018-03-12] MEDS: OXYBUTYNIN CHLORIDE 5 MG TAB PO SCH ×2 (14:04→22:46)
[2018-03-12] MEDS ORDERED: PROPOFOL IV EMULSION 10 MG/ML 20 ML VIAL ONE (18:54)
[2018-03-12] MEDS ORDERED: MIDAZOLAM HCL 2 MG/2 ML VIAL ONE (18:54)
[2018-03-12] MEDS ORDERED: LIDOCAINE HCL 2% LOCAL INJ 5 ML SDV VIAL INJ ONE (18:54)
[2018-03-12] MEDS ORDERED: LIDOCAINE HCL 2% JELLY 5 ML TUBE ONE (18:54)
[2018-03-12] MEDS ORDERED: FENTANYL CITRATE/PF 100MCG/2 ML INJ ONE (18:54)
[2018-03-12] MEDS ORDERED: SEVOFLURANE INHAL SOLN 250 ML PEN BTL ONE (18:54)
[2018-03-12] MEDS ORDERED: ONDANSETRON HCL INJ 2 MG/ML VIAL ONE (18:54)
--- NOTE | 2018-03-12 19:18 | NUR ---
Report received and walking rounds complete. Pt A&O and in no apparent distress and all safety measures ensured. Pt encouraged to use call toribio for assistance.
[2018-03-13 00:48] VITALS: BP 130/72
[2018-03-13] MEDS: SODIUM CHLORIDE 0.9% 1000ML 1,000 ML IV SCH ×2 (01:49→09:28)
[2018-03-13 04:46] LABS: BASOPHILS % 0.5 % (0.0-1.0); EOSINOPHILS # (AUTO) 0.2 (0.0-0.4); HEMATOCRIT 38.1 % (34.2-44.1); LYMPHOCYTES # (AUTO) 1.6 (1.0-3.2); LYMPHOCYTES % 20.2 % (18.0-39.1); MEAN CORPUSCULAR HGB CONC 34.1 g/dL (31-35); MONOCYTES # (AUTO) 0.9 (0.2-0.8); MONOCYTES % 11.7 % (4.4-11.3); NEUTROPHILS # (AUTO) 5.1 (2.1-6.9); NEUTROPHILS % 64.3 % (38.7-80.0); PLATELET COUNT 228 x10e3/uL (140-360); RED BLOOD COUNT 4.33 x10e6/uL (3.6-5.1); RED CELL DISTRIBUTION WIDTH 13.1 % (11.7-14.4)
[2018-03-13 05:00] LABS: BLOOD UREA NITROGEN 13 mg/dL (7-26); BUN/CREATININE RATIO 14 (6-25); CALCIUM 8.4 mg/dL (8.4-10.2); CARBON DIOXIDE 24 mmol/L (22-29); CHLORIDE 103 mmol/L (98-107); CREATININE, SERUM 0.92 mg/dL (0.57-1.11); EST GLOMERULAR FILTRATION RATE > 60 ML/MIN (60-); GLUCOSE 121 mg/dL (74-118); SODIUM 137 mmol/L (136-145)
[2018-03-13 06:01] LABS: ANION GAP 12.9 mmol/L (8-16)
[2018-03-13 06:05] VITALS: BP 132/83
[2018-03-13 06:06] LABS: POTASSIUM 2.9 mmol/L (3.5-5.1)
--- NOTE | 2018-03-13 06:09 | NUR ---
Lab called for critical +K of 2.9. Contacted Dr. Milton to report result. Answering service to contact Dr. Rina Davis who is covering for Dr. Milton. Awaiting for MD to call back with possible orders.
--- NOTE | 2018-03-13 06:10 | NUR ---
Pt assessed and no complaints of chest pain or any pain/discomfort. Informed pt of low +K result. Pt states that is normal that her +K goes low and goes between that and normal level.
--- NOTE | 2018-03-13 06:36 | NUR ---
2nd attempt to contact MD for orders
--- NOTE | 2018-03-13 07:02 | NUR ---
Report given to oncoming nurse. Informed day shift nurse of attempts to contact MD for orders for low +K but no return call.
[2018-03-13 08:20] VITALS: BP 146/81
[2018-03-13] MEDS: SPIRONOLACTONE 25 MG TAB PO SCH (09:16)
[2018-03-13] MEDS: CEFTRIAXONE SOD 1 GM/NS 50 ML 50 ML IV SCH (09:16)
[2018-03-13] MEDS: OXYBUTYNIN CHLORIDE 5 MG TAB PO SCH ×2 (09:17→14:10)
[2018-03-13] MEDS: CARVEDILOL 12.5 MG TAB PO SCH (09:17)
[2018-03-13] MEDS: MELOXICAM 7.5 MG TAB PO SCH (09:17)
[2018-03-13] MEDS: PHENAZOPYRIDINE HCL 100 MG TAB PO SCH ×2 (09:17→14:10)
[2018-03-13] MEDS ORDERED: POTASSIUM CHLORIDE 10MEQ EA PO NR ×3 (09:30→14:00)
[2018-03-13 09:35] VITALS: BP 146/81
--- NOTE | 2018-03-13 13:27 | Operative Report ---
DATE OF PROCEDURE: March 12, 2018 PREOPERATIVE DIAGNOSES 1. Right hydronephrosis due to stone. 2. Nephrolithiasis. 3. Ureterolithiasis. POSTOPERATIVE DIAGNOSES: 1. Right hydronephrosis due to stone. 2. Nephrolithiasis. 3. Ureterolithiasis. 4. Mixed-type urinary incontinence. 5. Grade III cystocele. 6. Grade III rectocele. 7. Urethral hypermobility. OPERATIONS PERFORMED 1. Cystourethroscopy with bilateral ureteral catheterization and retrograde ureteropyelography (separate procedure performed to evaluate the anatomy of the stones in relation to the anatomy of the kidneys and ureters). 2. Interpretation of retrograde ureteropyelography. 3. Supervision of fluoroscopy, no radiologist present. 4. Cystourethroscopy with insertion of right indwelling ureteral stent (separate procedure performed for the diagnosis of hydronephrosis). 5. Pelvic examination under anesthesia. ANESTHESIA: General. COMPLICATIONS: None. CLINICAL SUMMARY: Please refer to consultation dictation from the prior date. OPERATIVE PROCEDURE IN DETAIL: Informed consent was verified. Claudine Spear was properly identified, taken to the operating room, placed on the cystoscopy table in supine position. Anesthesia was uneventfully begun. The patient was then carefully and gently repositioned in dorsal lithotomy position with all pressure points well padded. Her genitalia were prepared and draped in usual sterile fashion. A 22.5-Albanian cystoscope sheath with obturator in place was atraumatically inserted in patient's urethra and bladder was drained. Panendoscopy revealed grade 1 trabeculation as well as cystitis most prominently along the trigone in the inferior portion of the posterior wall. There were no suspicious lesions, there were no tumors and there were no stones. A ureteral catheter was used to cannulate each ureter and retrograde ureteropyelography was performed. With cystoscopic and fluoroscopic guidance, a right-sided indwelling ureteral stent was then placed. It was coiled in patient's kidney as well as patient's bladder. The retaining suture was cut short. Interpretation of retrograde ureteropyelography: Contrast was instilled in retrograde fashion bilaterally. The left side exhibited no hydronephrosis. It did not well delineate the stones and their anatomical location on the left hand side and the left-sided stones were not well visible. The right side had stones in lower pole on gauger chief films. There were numerous stones within the ureter. The stent was in good position, coiled in the patient's kidney as well as the [id number]'s bladder at the end of the case. The patient's bladder was drained. The cystoscope was withdrawn. Pelvic examination under anesthesia revealed grade III cystocele, grade III rectocele. There was urethral hypomobility. No suspicious mucosal lesions could be identified. There were no abnormal palpable pelvic masses that could be appreciated. The only specimen from the case was a culture from the patient's right kidney. The patient was then uneventfully reversed from anesthesia and taken to recovery room in stable condition. There were no complications during the procedure. She tolerated the procedure well. Plans will be to ensure the patient becomes afebrile. We will also ensure that the patient tolerates her procedure and once we have the patient's urine cultures back, we will be able to send her home on culture-specific antibiotics for multiple outpatient surgeries to follow. Job#: [id number]
[2018-03-13] MEDS ORDERED: CIPRO500 MG PO (13:37)
[2018-03-13] MEDS ORDERED: ULTRAM50 MG PO (13:37)
[2018-03-13] MEDS ORDERED: DITROPAN XL5 MG PO (13:38)
--- NOTE | 2018-03-13 14:34 | NUR ---
potassium replaced prior to discharge per Dr Davis.
== END 2018-03-13 14:32 | disposition home or self-care (01) | DRG 661 ==
LOC: ER 19:57 → ERHOLD 03-11 00:06 → IMCU 03-11 02:06 → OBSVTOIN 03-12 12:06
PROVIDERS: ADMIT Internal Medicine; ATTEND Internal Medicine
PROC: 0T768DZ Dilation of Right Ureter with Intraluminal Device, Via Natural or Artificial Opening Endoscopic (ICD-10-PCS; 2018-03-12)
PROC: BT1B1ZZ Fluoroscopy of Bladder and Urethra using Low Osmolar Contrast (ICD-10-PCS; principal; 2018-03-12 10:30)
PROC: 0T788ZZ Dilation of Bilateral Ureters, Via Natural or Artificial Opening Endoscopic (ICD-10-PCS; 2018-03-13)
DX: N13.2 Hydronephrosis with renal and ureteral calculous obstruction (principal); N39.46 Mixed incontinence; N81.10 Cystocele, unspecified; N81.6 Rectocele; N36.41 Hypermobility of urethra; N39.0 Urinary tract infection, site not specified; E66.9 Obesity, unspecified; Z68.34 Body mass index [BMI] 34.0-34.9, adult; N28.1 Cyst of kidney, acquired; E87.6 Hypokalemia; Z79.4 Long term (current) use of insulin; E78.5 Hyperlipidemia, unspecified; E11.22 Type 2 diabetes mellitus with diabetic chronic kidney disease; I12.9 Hypertensive chronic kidney disease with stage 1 through stage 4 chronic kidney disease, or unspecified chronic kidney disease; N18.3 Chronic kidney disease, stage 3 (moderate); N17.9 Acute kidney failure, unspecified; N81.12 Cystocele, lateral
CPT/HCPCS: 36415; 74176; 74420; 80048; 80053; 81001; 81025; 82948; 83605; 83970; 84132; 84550; 85025; 87040; 87086; 87186; 96361; 99283; C2617; G0378; J0696; J2001; J2250; J2405; J7030

== ENCOUNTER → 2018-04-14 | Day surgery (SDC) | payer OTHER ==
[2018-04-08 14:54] LABS: CALCIUM 9.2 mg/dL (8.4-10.2); CREATININE, SERUM 1.15 mg/dL (0.57-1.11)
--- NOTE | 2018-04-08 15:57 | Diagnostic Imaging Report ---
Exam: Abdominal film Clinical History: Preop, right renal stone Comparison: CT abdomen and pelvis without contrast 03/10/2018 DISCUSSION: Frontal view of the abdomen shows a nonobstructive bowel gas pattern with mild amount of retained stool.There are no dilated, air-filled loops of bowel. Multiple bilateral radiopaque densities are again noted projecting over the renal shadows, which are better visualized on CT abdomen and pelvis 03/10/2018. The largest stone is on the right side and measures approximately 5 mm. Right double-J internal ureteral stent in place. The upper pigtail is mildly uncoiled. No acute bony abnormalities. IMPRESSION: 1. Nonobstructive bowel gas pattern. 2. Bilateral nonobstructing calculi. The staff physician below has personally reviewed this exam on the date of dictation. Signed by: Dr. Durga Collins M.D. on 04/08/2018 3:54 PM
[~2018-04-14] MED LIST changes: +BC PILL PO; +CARVEDILOL12.5 MG PO; +CEFTRIAXONE SOD 1 GM/NS 50 ML 50 ML IV ONE; +CIPRO500 MG PO; +DITROPAN XL5 MG PO; +FENTANYL CITRATE/PF 100MCG/2 ML INJ ONE; +LIDOCAINE HCL 2% LOCAL INJ 5 ML SDV VIAL INJ ONE; +MELOXICAM7.5 MG PO; +MIDAZOLAM HCL 2 MG/2 ML VIAL ONE; +ONDANSETRON HCL INJ 2 MG/ML VIAL ONE; +PROPOFOL IV EMULSION 10 MG/ML 20 ML VIAL ONE; +SEVOFLURANE INHAL SOLN 250 ML PEN BTL ONE; +SPIRONOLACTONE100 MG PO; +ULTRAM50 MG PO
--- OUTSIDE RECORDS SUMMARY | 2018-04-14 05:46 | XMS REPORT | Clinical Summary ---
Author Author [facility] Address Unknown Phone Unavailable Care Team Providers Care Straight Edger Name Role Phone Willy Rodriguez MD PCP [...] INFLUENZA VACCINE 12/28/2017 Results Not on fileafter 04/13/2017 Insurance Payer Benefit Subscriber ID Type Phone Address Plan / Group [employer] - MGD CARE [employer]IG[employer] xxxxxxxxxxx HMO/POS HMO/POS/OP EN ACCESS
--- OUTSIDE RECORDS SUMMARY | 2018-04-14 05:46 | XMS REPORT | Clinical Summary ---
Author Author [facility] Organization [facility] Address Unknown Phone Unavailable Care Team Providers Care Head Loader Name Role Phone Kristal Paulino MD PCP [...] 7 ointmentIndications: (two) times a Psoriasis day. 04/28/2017 oseltamivir (TAMIFLU) 75 Take 1 10 [...] Dx) 03/09/2018 Office Visit Internal Medicine Mari Lopez, JULIET 01/05/2018 Telephone Family Medicine Kristal Paulino MD [...] Rowan Austin LVN 04/23/2017 Telephone Internal Medicine after 04/13/2017 Family History Medical History Relation Name Comments [...] Taken Vital Sign Reading 03/09/2018 8:51 AM [employer] Blood Pressure 129/81 03/09/2018 8:51 AM [employer] Pulse 99 08/19/2017 10:17 AM CDT Temperature 36.6 C (97.9 F) 03/09/2018 8:51 AM [employer] Respiratory Rate 16 03/09/2018 8:51 AM [employer] Oxygen Saturation 95% - Inhaled Oxygen - Concentration 03/09/2018 8:51 AM [employer] Weight 87.5 kg (193 lb) 03/09/2018 8:51 AM [employer] Height 152.4 cm (5') 03/09/2018 8:51 AM [employer] Body Mass Index 37.69 Plan of Treatment Care Team Description Date Type Specialty Kristal Paulino MD [address] [place], [place] [id number] Gregoria Franco MD [address] [place], [place] [address] 04/15/2018 Office Visit Neurology Health Maintenance Due Date Last Done Comments DIABETIC RETINAL EYE EXAM 1970 DIABETIC FOOT EXAM 1980 URINE MICROALBUMIN 1980 CERVICAL CANCER SCREENING 1991 INFLUENZA VACCINE 10/28/2017 Procedures Comments Procedure Name Priority Date/Time Associated [...] 06/04/2017 Gross hematuria WITH MICROSCOPY 11:25 AM [employer] URINE CULTURE Routine 06/04/2017 Gross hematuria 11:25 AM [employer] [id number] Routine 06/04/2017 Gross hematuria 11:18 AM [employer] CONNIE (stress urinary incontinence, female) Overactive bladder POC URINALYSIS DIPSTICK Routine 06/04/2017 Gross hematuria 10:18 AM [employer] URINALYSIS, COMPLETE, Routine 05/30/2017 WITH REFLEX TO CULTURE 12:49 AM [employer] URINE CULTURE Routine 05/30/2017 12:49 AM [employer] POC URINALYSIS DIPSTICK Routine 05/28/2017 UTI (urinary tract 10:05 AM [employer] infection), uncomplicated POCT INFLUENZA A/B Routine 04/23/2017 Body aches 10:01 AM [employer] after 04/13/2017 Results * CT Abdomen Pelvis Wo Contrast (08/19/2017 1:51 PM CDT) Narrative Performed At EXAMINATION:CT ABDOMEN PELVIS WO CONTRAST [facility] CLINICAL HISTORY:R10.31 Right lower quadrant pain, [...] is not identified. 3.The appendix appears normal. [id number] Procedure Note Hm Interface, Radiology Results Incoming - 08/19/2017 2:04 [...] not identified. 3. The appendix appears normal. [id number] Performing Organization Address City/State/Zipcode Phone Number [facility] [address] [place] [address] * CBC with platelet and differential (08/19/2017 11:10 AM CDT) WBC 8.3 3.8 - 10.8 Thousand/uL [employer] [place] RBC 5.62 (H) 3.80 - 5.10 Million/uL [employer] [place] HGB 17.0 (H) 11.7 - 15.5 g/dL [facility] [place] HCT 50.9 (H) 35.0 - 45.0 % [employer] [place] MCV 90.6 80.0 - 100.0 fL [facility] MCH 30.2 27.0 - 33.0 pg [facility] [place] MCHC 33.4 32.0 - 36.0 g/dL [facility] [place] RDW 12.8 11.0 - 15.0 % [facility] Platelet count 313 140 - 400 Thousand/uL [employer] [facility] [place] MPV 10.4 7.5 - 12.5 fL [facility] Neutrophils, absolute 5,843 1,500 - 7,800 cells/uL [facility] [place] Lymphocytes, absolute 1,760 850 - 3,900 cells/uL [facility] [place] Monocytes, absolute 573 200 - 950 cells/uL [employer] [facility] [place] Eosinophils, absolute 58 15 - 500 cells/uL [facility] [place] Basophils, absolute 66 0 - 200 cells/uL [facility] [place] Neutrophils 70.4 % [facility] Lymphocytes 21.2 % [facility] Monocytes 6.9 % [facility] Eosinophils 0.7 % [employer] [facility] [place] Basophils + RC 0.8 % [employer] [facility] [place] Specimen Blood Resulting Agency Comment Performing Organization Information: Site ID: [id number] Name: [facility] Address: [address] [place] [phone] Director: Genoveva Velasquez Performing Organization Address City/State/[place] [address] * Magnesium level (08/19/2017 11:10 AM CDT) Magnesium 1.9 1.5 - 2.5 mg/dL [facility] Specimen Blood Resulting Agency Comment Performing Organization Information: Site ID: [id number] Name: [facility] Address: [address] [place] [phone] Director: Genoveva Velasquez Performing Organization Address City/State/Zipcode Phone Number [place] [phone] * Comprehensive metabolic panel (08/19/2017 11:10 AM CDT) Glucose 114 (H) 65 - 99 mg/dL [employer] Comment: [place] Fasting reference interval For someone without known diabetes, a glucose value between 100 and 125 mg/dL is consistent with prediabetes and should be confirmed with a follow-up test. BUN, whole blood 14 7 - 25 mg/dL [facility] [place] Creatinine 0.97 0.50 - 1.10 mg/dL [employer] [facility] [place] EGFR Non-Afr. Peruvian 70 > OR=60 mL/min/1.73m2 [employer] [employer] [facility] [place] EGFR 81 > OR=60 mL/min/1.73m2 [employer] [facility] [place] BUN/creatinine ratio NOT APPLICABLE 6 - 22 (calc) [facility] [place] Sodium 139 135 - 146 mmol/L [facility] Potassium 4.2 3.5 - 5.3 mmol/L [facility] Chloride 102 98 - 110 mmol/L [facility] CO2 30 20 - 31 mmol/L [facility] Calcium 9.4 8.6 - 10.2 mg/dL [facility] Protein 7.5 6.1 - 8.1 g/dL [facility] Albumin, S 4.2 3.6 - 5.1 g/dL [facility] [place] Globulin, total 3.3 1.9 - 3.7 g/dL (calc) [facility] Albumin/globulin ratio 1.3 1.0 - 2.5 (calc) [facility] Total bilirubin 0.7 0.2 - 1.2 mg/dL [facility] Alkaline phosphatase 53 33 - 115 U/L [facility] AST 25 10 - 35 U/L [facility] ALT 38 (H) 6 - 29 U/L [facility] Specimen Blood Resulting Agency Comment Performing Organization Information: Site ID: [id number] Name: [facility] Address: [address] [place] [phone] Director: Genoveva Velasquez Performing Organization Address City/State/Zipcode Phone Number [facility] [employer] [place] [phone] * POC urinalysis dipstick (06/25/2017 1:58 PM [...] urogram. Additional findings as above. [facility]-[id number] Procedure Note [facility], Radiology Results Incoming - 06/16/2017 10:36 AM [...] urogram. Additional findings as above. [facility]-[id number] Performing Organization Address City/State/Zipcode Phone Number [facility] [address] [place] [address] * MRI Pelvis Wo Contrast (06/16/2017 9:15 AM CDT) Narrative Performed At EXAMINATION:MRI PELVIS WO CONTRAST [facility] CLINICAL HISTORY:R31.0 Gross hematuria, hematurai TECHNIQUE: Multiplanar [...] the uterine fundus as above. [facility]-[id number] Procedure Note Interface, Radiology Results - 06/16/2017 10:26 AM CDT EXAMINATION: MRI [...] the uterine fundus as above. [facility]-[id number] Performing Organization Address City/State/Zipcode Phone Number [facility] [address] [place] [address] * Estimated GFR (06/12/2017 1:56 PM CDT) GFR Non Af Amer 53 (A) mL/min/1.73 m2 [facility] DEPARTMENT OF PATHOLOGY AND GENOMIC MEDICINE GFR Af Amer 65 mL/min/1.73 m2 [facility] DEPARTMENT OF Comment: PATHOLOGY AND Chronic [...] and Americans. Specimen Blood Performing Organization Address City/State/Zipcode Phone Number [facility] DEPARTMENT OF [address] [place] [address] PATHOLOGY AND GENOMIC MEDICINE * POC creatinine (06/12/2017 1:56 PM CDT) POC creatinine 1.1 (H)Comment: Testing 0.5 - 0.9 mg/dl [facility] DEPARTMENT OF performed on the [facility] PATHOLOGY AND instrument by JULIET 158Wendy. GENOMIC MEDICINE Specimen Blood Performing Organization Address City/State/[place] [address] PATHOLOGY AND GENOMIC MEDICINE * Urinalysis, automated with microscopy (06/04/2017 11:25 AM [employer]) Color, UA YELLOW YELLOW [facility] [place] Appearance CLOUDY (A) CLEAR [facility] Specific gravity, urine 1.015 1.001 - 1.035 [facility] [place] pH, urine 6.5 5.0 - 8.0 [facility] [place] Glucose, urine NEGATIVE NEGATIVE [facility] [place] Bilirubin, UA NEGATIVE NEGATIVE [facility] [place] Ketones, UA NEGATIVE NEGATIVE [facility] [place] Occult blood, urine 1+ (A) NEGATIVE [facility] [place] Protein, UA 1+ (A) NEGATIVE [facility] [place] Nitrite, UA NEGATIVE NEGATIVE [facility] [place] Leukocyte esterase, UA 2+ (A) NEGATIVE [facility] [place] WBC, UA > OR=60 (A) < OR=5 /HPF [facility] [place] RBC, UA 0-2 < OR=2 /HPF [facility] [place] Squamous epithelial 6-10 (A) < OR=5 /HPF [facility] cells, [facility]A [place] Bacteria, UA MANY (A) NONE SEEN /HPF [facility] [place] Hyaline casts, UA 0-5 (A) NONE SEEN /LPF [employer] [place] Specimen Urine Resulting Agency Comment Performing Organization Information: Site ID: RGA Name: [facility] Address: [address] [place] [phone] Director: Genoveva Velasquez MD Performing Organization Address City/State/Zipcode Phone Number [place] [employer] [place] [phone] * Urine culture (06/04/2017 11:25 AM [employer]) Only the most recent of 2 results within the time period is included. Urine culture SEE NOTE (A) [employer] [facility] Comment: [place] CULTURE, URINE, ROUTINE MICRO NUMBER:[id number] TEST STATUS: FINAL SPECIMEN SOURCE: URINE SPECIMEN [...] Performing Organization Information: Site ID: [id number] Name: [facility] Address: [address] [place], [place] [id number] Director: Genoveva Velasquez MD Performing Organization Address [facility] [place] [address] * POC BLADDER SCAN/PVR (06/04/2017 11:18 AM [employer]) Volume PVR 21ml Specimen Urine * URINALYSIS, COMPLETE, WITH REFLEX TO CULTURE (05/30/2017 12:49 AM [employer]) Color, UA TNP [employer] Comment: [place] * Test not performed. * * No suitable specimen received. * Narrative Performed At FASTING: UNKNOWN [facility] Resulting Agency Comment Performing Organization Information: Site ID: [id number] Name: [facility] Address: [address] [place], [place] [id number] Director: Genoveva Velasquez MD Performing Organization Address [facility] [place] [address] * POC Influenza A/B (04/23/2017 10:01 AM [employer]) Rapid Influenza A Ag NEG Rapid Influenza B Ag NEG Specimen Swab after 04/13/2017 Insurance Payer Benefit Subscriber ID Type Phone Address Plan / Group [facility] xxxxxxxxx HMO/PPO THCARE CHOICE/CHO ICE + Advance Directives Patient has advance care planning documents on file. For more information, parmjit e contact: Ja Granado [address] [place] [address]
[2018-04-14 10:15] VITALS: BP 117/82
--- NOTE | 2018-04-14 13:30 | Operative Report ---
DATE OF PROCEDURE: April 14, 2018 PREOPERATIVE DIAGNOSIS: Right nephrolithiasis. POSTOPERATIVE DIAGNOSIS: Right nephrolithiasis. OPERATIONS PERFORMED 1. Staged right-sided extracorporeal shockwave lithotripsy. 2. Supervision of fluoroscopy, no radiologist present. ANESTHESIA: General. COMPLICATIONS: None. CLINICAL SUMMARY: Claudine Spear is a 47-year-old woman with recurrent stone disease. She underwent ureteral stenting for obstructing right ureterolithiasis. She is brought to the operating room today for ESWL. She is aware of the risks of bleeding, infection, injury to adjacent structures, the need for additional procedures, and elected to proceed. OPERATIVE PROCEDURE IN DETAIL: Informed consent was verified. Mrs. Spear was properly identified, taken to the operating room, placed on the lithotripsy table in the supine position, and anesthesia was uneventfully begun. We were not able to visualize any ureteral stones. We did visualize a stone centered around the coil of the proximal portion of the stent. We believed this to be the stone that was in the ureter that has now migrated into the renal pelvis. We performed a lithotripsy on the stone after localizing it with a biplanar fluoroscopy. We also lithotripsied the fragments as they moved away from their initial location. No additional stones could be visualized fluoroscopically. Following 2000 shocks, no additional stones could be visualized and the procedure was thus ended. The patient was then uneventfully reversed from anesthesia and taken to the recovery room in stable condition. There were no complications of the procedure. She tolerated the procedure well. Plans will be to return the patient to the operating room in several weeks to remove her stent, to perform ureteroscopy and laser any residual stones. Ongoing urological followup is a must. Job#: [id number] EV
== END | disposition home or self-care (01) ==
LOC: OR 05:44
PROVIDERS: ATTEND Urology
DX: N20.0 Calculus of kidney (principal); N26.1 Atrophy of kidney (terminal); Z96.0 Presence of urogenital implants; I10 Essential (primary) hypertension; E11.9 Type 2 diabetes mellitus without complications; B15.9 Hepatitis A without hepatic coma; K21.9 Gastro-esophageal reflux disease without esophagitis; L40.9 Psoriasis, unspecified; Z88.8 Allergy status to other drugs, medicaments and biological substances; Z88.6 Allergy status to analgesic agent; Z91.041 Radiographic dye allergy status; Z01.810 Encounter for preprocedural cardiovascular examination; Z01.812 Encounter for preprocedural laboratory examination
CPT/HCPCS: 36415 ×2; 50590; 74018; 80048; 81025 ×2; 84132; 93005; J0696; J2001; J2250; J2405; J2704

== ENCOUNTER → 2018-08-18 | Outpatient (CLI) | payer OTHER ==
[~2018-08-18] MED LIST changes: -CEFTRIAXONE SOD 1 GM/NS 50 ML 50 ML IV ONE; -FENTANYL CITRATE/PF 100MCG/2 ML INJ ONE; -LIDOCAINE HCL 2% LOCAL INJ 5 ML SDV VIAL INJ ONE; -MIDAZOLAM HCL 2 MG/2 ML VIAL ONE; -ONDANSETRON HCL INJ 2 MG/ML VIAL ONE; -PROPOFOL IV EMULSION 10 MG/ML 20 ML VIAL ONE; -SEVOFLURANE INHAL SOLN 250 ML PEN BTL ONE
--- NOTE | 2018-08-18 13:47 | Diagnostic Imaging Report ---
EXAMINATION: CT of the abdomen and pelvis without contrast. TECHNIQUE: Spiral CT images of the abdomen and pelvis were performed from the lung bases to the lesser trochanters. No intravenous contrast was given per renal stone protocol. Coronal and sagittal reformatted images were obtained. COMPARISON: CT abdomen and pelvis without contrast 03/10/2018, abdominal radiograph 04/08/2018 CLINICAL HISTORY:Renal stones, right-sided lithotripsy and May 19, 2018 DISCUSSION: ABSENCE OF INTRAVENOUS CONTRAST DECREASES SENSITIVITY FOR DETECTION OF FOCAL LESIONS AND VASCULAR PATHOLOGY. ABDOMEN/PELVIS: LOWER THORAX: Unremarkable. HEPATOBILIARY:Hepatic parenchyma is diffusely hypoattenuating compatible with steatosis. The gallbladder has been removed. SPLEEN: No splenomegaly. PANCREAS: No focal masses or ductal dilatation. ADRENALS: No adrenal nodules. KIDNEYS/URETERS: Multiple (approximately 10) right renal calculi are grossly unchanged, measuring up to 5 mm in the lower pole (series 3 image 84. There are also approximately 10 left renal calculi, all of which are punctate in size, scattered throughout the upper pole, interpolar, and lower pole collecting systems. The right ureteropelvic junction calculus described on the comparison examination, as well as the mild right hydronephrosis is no longer visualized. No ureteral or bladder calculi. Left renal atrophy with multiple low-attenuation lesions compatible with cysts is again noted. PELVIC ORGANS/BLADDER: The urinary bladder is collapsed and poorly evaluated. Uterus is anteflexed and appears normal. No adnexal mass. PERITONEUM/RETROPERITONEUM: No ascites. No pneumoperitoneum. LYMPH NODES: No pelvic sidewall, retroperitoneal, or mesenteric lymphadenopathy. VESSELS: Limited evaluation without intravenous contrast. The abdominal aorta is not aneurysmal. GI TRACT: The large bowel shows no evidence of distention or wall thickening. The appendix is normal. No small bowel dilatation to suggest obstruction. BONES AND SOFT TISSUES: No osseous destructive lesions. No focal soft tissue abnormalities. IMPRESSION: Resolved right hydronephrosis with interval clearance of right ureteropelvic junction and distal ureteral calculi. Scattered small bilateral nonobstructing renal calculi as detailed above. Left renal atrophy with probable complex cysts, unchanged relative to 03/10/2018. As previously discussed, renal ultrasound should be considered for further evaluation. Hepatic steatosis. Signed by: Dr. Christian Norris M.D. on 08/18/2018 1:44 PM
== END ==
LOC: CT 12:46
PROVIDERS: ATTEND Urology
DX: N20.0 Calculus of kidney (principal)
CPT/HCPCS: 74176; 81025

== ENCOUNTER → 2018-11-25 | Outpatient (CLI) | payer OTHER ==
--- NOTE | 2018-11-25 17:19 | Diagnostic Imaging Report ---
Exam: KUB Comparison: April 08, 2018 Clinical history: Renal stone Findings: There is interval removal of the right internal ureteral stents. Multiple calcific density structures are again noted overlying the interpolar and inferior pole right kidney measuring up to 9 mm most compatible with nephrolithiasis. No evidence of radiopaque stones noted in the region of the left kidney. Surgical clips are seen in the right upper quadrant likely due to prior cholecystectomy. There is nonobstructive bowel gas pattern. The regional osseous structures are unremarkable. Impression: 1. Right nephrolithiasis measuring up to 9 mm. Signed by: Dr. Maurice rAellano MD on 11/25/2018 5:16 PM
--- NOTE | 2018-11-26 08:37 | Diagnostic Imaging Report ---
Renal ultrasound, 11/25/2018. History: Renal calculus. Comparison: CT 08/18/2018. Discussion: Transverse and longitudinal images of the kidneys were obtained demonstrating normal renal echogenicities. Multiple small echogenic foci are present bilaterally, largest on the right measuring 5 mm in the lower pole and the largest on the left measuring 7 mm in the lower pole. There is no evidence of hydronephrosis or mass. An oval anechoic structure is present in the lower pole of the left kidney measuring 2.9 x 2.2 x 2.2 cm. The right kidney measures 12.2 cm and the left kidney measures 9.8 cm in length. Renal cortex measures 1.4 and 1.3 cm respectively. The urinary bladder is unremarkable. Ureteral jets were not identified. Bladder volume measures 105 mL. There is no evidence of free fluid. IMPRESSION: 1. Small bilateral nonobstructing renal calculi. 2. Atrophic left kidney with simple cyst noted. Signed by: Malik Daniel on 11/26/2018 8:33 AM
== END ==
LOC: US 15:32
PROVIDERS: ATTEND Urology
DX: N20.0 Calculus of kidney (principal)
CPT/HCPCS: 74018; 76770; 81025

== ENCOUNTER 2019-01-24 17:18 | Emergency (ER) | payer OTHER ==
[~2019-01-24] VITALS: Ht 160 cm; Wt 78.9 kg
[~2019-01-24 17:18] MED LIST changes: +OXYBUTYNIN CHLOR5 MG PO; +SKYRIZI75 MG/0.83 INJ; +SYNJARDY XR 251 EACH PO; +TRULICITY0.75 MG/0. INJ
[2019-01-24 18:25] LABS: BASOPHILS # (AUTO) 0.1 (0.0-0.1); BASOPHILS % 0.8 % (0.0-1.0); EOSINOPHILS # (AUTO) 0.3 (0.0-0.4); HEMATOCRIT 48.7 % (34.2-44.1); HEMOGLOBIN 16.3 g/dL (12.0-16.0); LYMPHOCYTES % 22.9 % (18.0-39.1); MEAN CORPUSCULAR HEMOGLOBIN 28.8 pg (28-32); MEAN CORPUSCULAR HGB CONC 33.5 g/dL (31-35); MEAN CORPUSCULAR VOLUME 86.2 fL (81-99); MONOCYTES # (AUTO) 0.8 (0.2-0.8); MONOCYTES % 8.7 % (4.4-11.3); NEUTROPHILS # (AUTO) 5.6 (2.1-6.9); NEUTROPHILS % 64.4 % (38.7-80.0); PLATELET COUNT 313 x10e3/uL (140-360); RED BLOOD COUNT 5.65 x10e6/uL (3.6-5.1); RED CELL DISTRIBUTION WIDTH 13.3 % (11.7-14.4)
[2019-01-24 18:29] LABS: BILIRUBIN,URINE NEGATIVE (NEGATIVE); CLARITY,URINE SL CLOUDY (CLEAR); COLOR,URINE YELLOW (YELLOW); KETONES,URINE NEGATIVE (NEGATIVE); LEUKOCYTE ESTERASE ,URINE NEGATIVE (NEGATIVE); NITRITE,URINE NEGATIVE (NEGATIVE); PROTEIN,URINE DIPSTICK NEGATIVE (NEGATIVE); URINE UROBILINOGEN 0.2 mg/dL (0.2 - 1)
[2019-01-24 18:39] LABS: ALBUMIN 3.5 g/dL (3.5-5.0); ALBUMIN/GLOBULIN RATIO 0.8 (0.8-2.0); ANION GAP 13.6 mmol/L (8-16); CALCIUM 9.1 mg/dL (8.4-10.2); CREATININE, SERUM 1.02 mg/dL (0.57-1.11); POTASSIUM 3.6 mmol/L (3.5-5.1)
[2019-01-24 18:47] LABS: BACTERIA,URINE MANY /HPF; EPITHELIAL CELLS,URINE MODERATE /LPF
--- NOTE | 2019-01-24 19:11 | Diagnostic Imaging Report ---
RADIOGRAPH(S) OF THE ABDOMEN AND PELVIS, 2 view(s) HISTORY: Abdominal pain, laser surgery on right kidney, bleeding with urination COMPARISON: Abdominal pelvic radiographs January 12, 2019. CT of the pelvis January 07, 2019. FINDINGS: No specific evidence of obstruction or ileus. Other densities project in the region of the kidneys, most notably near the inferior pole the right kidney. Pelvic phleboliths. The bones are partially obscured by stool and overlying bowel gas. IMPRESSION: 1. Renal calculi, better seen on the recent CT from January 07, 2019. 2. Nonobstructive bowel gas pattern. Signed by: Dr. Eagle Apple D.O., M.M.M. on 01/24/2019 7:07 PM
--- NOTE | 2019-01-24 21:29 | Diagnostic Imaging Report ---
EXAM: CT Abdomen and Pelvis WITHOUT contrast INDICATION: Hematuria, status post lithotripsy COMPARISON: Abdominal CT 01/07/2019 03/10/2018. TECHNIQUE: Abdomen and pelvis were scanned utilizing a multidetector helical scanner from the lung base to the pubic symphysis without administration of IV contrast. Absence of intravenous contrast decreases sensitivity for detection of focal lesions and vascular pathology. Coronal and sagittal reformations were obtained. Routine protocol was performed. IV CONTRAST: None ORAL CONTRAST: None COMPLICATIONS: None RADIATION DOSE: Total DLP: 707 mGy*cm Estimated effective dose: (DLP x 0.015 x size factor) mSv CTDIvol has been reviewed. It is below the limits set by the Radiation Protocol Committee (RPC). Dose modulation, iterative reconstruction, and/or weight based adjustment of the mA/kV was utilized to reduce the radiation dose to as low as reasonably achievable. FINDINGS: LINES and TUBES: None. LOWER THORAX: Unremarkable HEPATOBILIARY: Diffuse decreased hepatic attenuation. No focal hepatic lesions. No biliary ductal dilation. GALLBLADDER: There are cholecystectomy clips. SPLEEN: No splenomegaly. PANCREAS: No focal masses or ductal dilatation. ADRENALS: No adrenal nodules KIDNEYS/URETERS: Compared to 03/10/2018, mild decrease in stone burden in the inferior right kidney. Otherwise, multiple unchanged bilateral renal parenchymal calcifications and a few tiny nonobstructive calculi. The left kidney remains mildly atrophic, scarred, and lobulated. Multiple bilateral renal cysts are unchanged, seen best on series 3, including: -2.4 cm cyst in the left renal inferior pole with thin focal peripheral rim calcification (image 71). -1.9 cm left renal superior pole cyst with thin peripheral rim calcification (image 53). -1.8 cm right renal superior pole cyst (image 61). A few additional subcentimeter cysts in the left kidney are also unchanged. No hydronephrosis. GI TRACT: No abnormal distention, wall thickening, or evidence of bowel obstruction. Appendix is normal. PELVIC ORGANS/BLADDER: A 2.5 cm left ovarian cyst consistent with a physiologic follicle. Stable pelvic phleboliths. LYMPH NODES: No lymphadenopathy. VESSELS: Unremarkable. PERITONEUM / RETROPERITONEUM: No free air or fluid. BONES: Unremarkable. SOFT TISSUES: Unremarkable. IMPRESSION: 1. Slight decrease in stone burden in the inferior right kidney. Otherwise, stable appearance of the kidneys since 03/10/2018, with mild left renal atrophy and scarring, and multiple small bilateral simple and minimally complex renal cysts, and mild bilateral renal parenchymal/pyramidal scarring and tiny nonobstructive calculi. No hydronephrosis. 2. Hepatic steatosis. Signed by: Ludin Torres DO on 01/24/2019 9:25 PM
[2019-01-24 22:34] VITALS: BP 145/92
== END 2019-01-24 22:57 | disposition home or self-care (01) ==
LOC: ER 17:18
DX: R31.9 Hematuria, unspecified (principal); R10.30 Lower abdominal pain, unspecified; N20.0 Calculus of kidney; I10 Essential (primary) hypertension; E11.9 Type 2 diabetes mellitus without complications
CPT/HCPCS: 36415; 74018; 74176; 80053; 81001; 84702; 85025; 99284

== ENCOUNTER 2021-09-16 06:55 | Observation (INO) | payer BC, OTHER ==
[~2021-09-16] VITALS: Ht 160 cm; Wt 78.9 kg
[2021-09-16] MEDS ORDERED: SODIUM CHLORIDE 0.9% 1000ML 1,000 ML IV STA (07:04)
[2021-09-16 07:21] LABS: BASOPHILS # (AUTO) 0.1 (0.0-0.1); EOSINOPHILS # (AUTO) 0.3 (0.0-0.4); EOSINOPHILS % 4.3 % (0.0-6.0); HEMATOCRIT 47.9 % (34.2-44.1); HEMOGLOBIN 15.1 g/dL (12.0-16.0); LYMPHOCYTES % 29.8 % (18.0-39.1); MEAN CORPUSCULAR HEMOGLOBIN 28.7 pg (28-32); MEAN CORPUSCULAR HGB CONC 31.5 g/dL (31-35); MEAN CORPUSCULAR VOLUME 91.1 fL (81-99); MONOCYTES # (AUTO) 0.6 (0.2-0.8); MONOCYTES % 8.7 % (4.4-11.3); NEUTROPHILS # (AUTO) 3.8 (2.1-6.9); NEUTROPHILS % 56.1 % (38.7-80.0); PLATELET COUNT 236 x10e3/uL (140-360); RED BLOOD COUNT 5.26 x10e6/uL (3.6-5.1); RED CELL DISTRIBUTION WIDTH 14.7 % (11.7-14.4)
[2021-09-16 07:38] LABS: INR 0.97; PROTHROMBIN TIME 13.8 seconds (11.9-14.5)
[2021-09-16 07:39] LABS: PARTIAL THROMBOPLASTIN TIME 29.9 seconds (23.8-35.5)
[2021-09-16 07:46] LABS: ALANINE AMINOTRANSFERASE 24 IU/L (0-55); ALBUMIN 3.5 g/dL (3.5-5.0); ALBUMIN/GLOBULIN RATIO 0.8 (0.8-2.0); ALKALINE PHOSPHATASE 71 IU/L (40-150); ANION GAP 12.9 mmol/L (8-16); BLOOD UREA NITROGEN 21 mg/dL (7-26); BUN/CREATININE RATIO 18 (6-25); CALCIUM 9.1 mg/dL (8.4-10.2); CARBON DIOXIDE 26 mmol/L (22-29); CHLORIDE 105 mmol/L (98-107); CREATINE KINASE 78 IU/L (29-168); CREATININE, SERUM 1.18 mg/dL (0.57-1.11); GLUCOSE 131 mg/dL (74-118); POTASSIUM 3.9 mmol/L (3.5-5.1); SODIUM 140 mmol/L (136-145)
[2021-09-16 08:05] LABS: THYROID STIMULATING HORMONE 3.183 uIU/mL (0.350-4.940)
[2021-09-16] MEDS ORDERED: ASPIRIN 81 MG CHEW TAB PO ONE (09:00)
[2021-09-16] MEDS ORDERED: ONDANSETRON HCL INJ 2MG/ML 2ML 2 MG/ML VIAL IV PRN (09:15)
[2021-09-16] MEDS ORDERED: LORAZEPAM INJ 2 MG/ML VIAL IV ONE (10:00)
[2021-09-16 10:18] LABS: CLARITY,URINE CLOUDY (CLEAR); COLOR,URINE ORANGE (YELLOW); KETONES,URINE NEGATIVE (NEGATIVE); LEUKOCYTE ESTERASE ,URINE TRACE (NEGATIVE); NITRITE,URINE NEGATIVE (NEGATIVE); PROTEIN,URINE DIPSTICK 2+ (NEGATIVE); URINE UROBILINOGEN 0.2 mg/dL (0.2 - 1)
[2021-09-16 10:32] LABS: BACTERIA,URINE MODERATE /HPF; EPITHELIAL CELLS,URINE MODERATE /LPF; RBC,URINE >50 /HPF (0-5); WBC,URINE (MAN) >50 /HPF (0-5)
[2021-09-16 14:45] LABS: CREATINE KINASE 70 IU/L (29-168)
[2021-09-16] MEDS ORDERED: LIPITOR20 MG PO (15:55)
[2021-09-16] MEDS ORDERED: ASPIRIN CHEW81 MG PO (15:55)
[2021-09-17] MEDS ORDERED: ASPIRIN 81 MG ENTERIC COATED PO SCH (09:00)
== END 2021-09-16 16:15 | disposition home or self-care (01) ==
LOC: ER 07:08 → INTOOBSV 09:34 → ERHOLD 09:34
PROVIDERS: ADMIT Internal Medicine; ATTEND Internal Medicine
DX: R20.0 Anesthesia of skin (principal); E11.22 Type 2 diabetes mellitus with diabetic chronic kidney disease; I12.9 Hypertensive chronic kidney disease with stage 1 through stage 4 chronic kidney disease, or unspecified chronic kidney disease; N18.30 Chronic kidney disease, stage 3 unspecified; E78.5 Hyperlipidemia, unspecified; Z20.822 Contact with and (suspected) exposure to COVID-19
CPT/HCPCS: 36415; 70450; 70544; 70547; 70551; 71045; 80053; 81001; 82550; 82553; 83735; 84443; 84484; 84702; 85025; 85610; 85730; 93005; 94799; 99284; G0378; J2060; J7030; U0002